=== PATIENT | female | born 1955 | race Caucasian/White ===

== ENCOUNTER 2020-06-15 14:43 | Inpatient (IN) | payer OTHER ==
--- OUTSIDE RECORDS SUMMARY | 2020-06-15 15:34 | XMS REPORT | Clinical Summary ---
:1955 Author Organization [facility] Address [address] [place] [address] Care Team Providers Name Role Phone Unavailable Primary Care Provider Unavailable Allergies No Known Allergies Medications Medication Sig Dispensed Refills Start Date End Date Status lisinopril Take 20 mg by 0 Activ e (PRINIVIL,ZESTRIL) 20 mouth daily. MG tablet meclizine (ANTIVERT) Take 1 tablet 30 tablet 0 10/20/2016 Active 12.5 mg tablet (12.5 mg total) by mouth 3 (three) times daily as needed for Dizziness. 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 Last Filed Vital Signs Not on file Plan of Treatment Not on file Results Not on fileafter 06/15/2019 Insurance Payer Benefit Plan / Group Subscriber ID Type Phone A ddress [employer] - [employer] CARE AET[employer] HMO POS QPOS xxxxxx HMO/POS Advance Directives For more information, please contact:[address] [place], [place] [phone] Code Status Date Activated Date Inactivated Comments Full Code 10/18/2016 11:35 PM 10/20/2016 6:30 PM This code status was determined by: Patient
[2020-06-15 16:46] LABS: Urine Bacteria <20 /HPF (<20); Urine Culture Reflex Order NOT NEEDED; Urine RBC <5 /HPF (NONE SEEN)
[2020-06-15 17:09] LABS: Absolute Lymphocytes (CBC) 0.8 K/uL (0.7-4.9); Basophils % 0.2 % (0-1.3); Hematocrit 39.1 % (36.0-45.0); Lymphocytes % 9.1 % (15.3-44.8); MPV 7.3 fL (7.6-11.3); RBC Red Blood Cell Count 4.22 M/uL (3.86-4.86)
[2020-06-15] MEDS ORDERED: NA CHLORIDE 0.9% 1,000 ML ONE ×2 (17:09→21:48)
[2020-06-15 17:29] LABS: Albumin 4.4 g/dL (3.4-5.0); Bilirubin Direct 0.2 mg/dL (0-0.2); Bilirubin Total 0.9 mg/dL (0.2-1.0); Potassium 3.9 mmol/L (3.5-5.1); Protein, Total 8.7 g/dL (6.4-8.2)
--- NOTE | 2020-06-15 18:33 | RAD REPORT ---
EXAM DESCRIPTION: CT - Abdomen Pelvis W Contrast - 06/15/2020 6:12 pm CLINICAL HISTORY: Abdominal pain. COMPARISON: 2011 TECHNIQUE: Computed axial tomography of the abdomen and pelvis was obtained. 100 cc Isovue-300 is ad ministered intravenously. Oral contrast was given. All CT scans are performed using dose optimization technique as appropriate and may include automated exposure control or mA/KV adjustment according to patient size. FINDINGS: 10 millimeter ground-glass opacity left lower lobe The liver, spleen, pancreas, adrenals and kidneys appear unremarkable. Appendectomy Large number of diverticula stem from the sigmoid colon. An air bubble appears extraluminal adjacent to sigmoid colon. Marked thickening of the wall of the sigmoid colon is present. Moderate stranding i s seen within the adjacent fat. Small to moderate amount free fluid is present within the cul-de-sac. Atherosclerosis. High-grade stenosis right common iliac artery IMPRESSION: Moderate to marked sigmoid diverticulitis. There probably is a microperforation. Small t o moderate amount of ascites within the cul-de-sac 10 millimeter ground-glass opacity left lower lobe. Follow up CT chest in 3 months recommended to ass ess stability/resolution
[2020-06-15] MEDS ORDERED: PIPER/TAZO/NS 3.375gm 3.375 GM/100 ML BAG ONE (19:25)
--- NOTE | 2020-06-15 19:58 | ER ---
Nurse's Notes [facility] Name: Niki Melendrez Age: 64 yrs Sex: Female : 1955 Arrival Date: 06/15/2020 Time: 14:45 Bed 4 Private MD: Diagnosis: Diverticulitis of large intestine with perforation and abscess Presentation: 06/15 15:40 Chief complaint: Patient states: lower abdominal pain X 4 days; Dr. Mast said he felt jl7 a mass or something and sent me here. Reports diarrhea, denies N/V; denies urinary symptoms. Coronavirus screen: Patient denies a cough. Patient denies shortness of breath or difficulty breathing. Patient denies measured and/or subjective temperature greater than 100.4F prior to today's visit. Patient denies travel on a cruise ship or to a country the [facility] currently lists as an affected area. Patient denies contact with known and/or suspected case of COVID-19. Proceed with normal triage. Ebola Screen: No symptoms or risks identified at this time. Initial Sepsis Screen: Does the patient meet any 2 criteria? No. Patient's initial sepsis screen is negative. Does the patient have a suspected source of infection? No. Patient's initial sepsis screen is negative. Risk Assessment: Do you want to hurt yourself or someone else? Patient reports no desire to harm self or others. Onset of symptoms was June 12, 2020. Care prior to arrival: None. 15:40 Method Of Arrival: Ambulatory [facility] 15:40 Acuity: MARCUS 3 jl7 Triage Assessment: 15:43 General: Appears in no apparent distress. uncomfortable, Behavior is calm, cooperative, jl7 appropriate for age. Pain: Complains of pain in right lower quadrant and left lower quadrant Pain currently is 8 out of 10 on a pain scale. GI: Reports diarrhea, Patient currently denies nausea, vomiting. Historical: - Allergies: 15:43 No Known Allergies; jl7 - Home Meds: 15:43 atorvastatin 40 mg oral tab 1 tab once daily [Active]; jl7 - PMHx: 15:43 Hyperlipidemia; Hypertension; jl7 - PSHx: 15:43 Appendectomy; jl7 - Immunization history:: Adult Immunizations unknown. - Social history:: Smoking status: Patient denies any tobacco usage or history of. Screenin:03 Abuse screen: Denies threats or abuse. Denies injuries from another. Nutritional sv screening: No deficits noted. Tuberculosis screening: No symptoms or risk factors identified. Fall Risk None identified. Assessment: 16:20 General: Appears in no apparent distress. comfortable, Behavior is calm, cooperative, em appropriate for age, Denies fever. Pain: Complains of pain in left lower quadrant and right lower quadrant Pain currently is 8 out of 10 on a pain scale. Pain began 2-3 days ago. Neuro: Level of Consciousness is awake, alert, obeys commands, Oriented to person, place, time, situation, Appropriate for age. Cardiovascular: Capillary refill < 3 seconds Patient's skin is warm and dry. Respiratory: Airway is patent Respiratory effort is even, unlabored, Respiratory pattern is regular, symmetrical. GI: Abdomen is flat, Bowel sounds present X 4 quads. Abd is soft and non tender X 4 quads. Patient currently denies nausea, vomiting. Derm: Skin is intact, is healthy with good turgor, Skin is pink, warm \T\ dry. Musculoskeletal: Capillary refill < 3 seconds, Range of motion: intact in all extremities. 17:00 Reassessment: Patient appears in no apparent distress at this time. Patient and/or em family updated on plan of care and expected duration. Pain level reassessed. Patient is alert, oriented x 3, equal unlabored respirations, skin warm/dry/pink. 17:49 Reassessment: Patient appears in no apparent distress at this time. No changes from sv previously documented assessment. Patient and/or family updated on plan of care and expected duration. Pain level reassessed. Patient is alert, oriented x 3, equal unlabored respirations, skin warm/dry/pink. 18:05 Reassessment: Patient appears in no apparent distress at this time. wheeled to CT via em wheelchair. 19:27 General: Appears in no apparent distress. Behavior is calm, cooperative, appropriate wh for age. Pain: Denies pain. Neuro: Level of Consciousness is awake, alert, obeys commands, Oriented to person, place, time, situation, Appropriate for age. Cardiovascular: Capillary refill < 3 seconds. Respiratory: Airway is patent Respiratory effort is even, unlabored, Respiratory pattern is regular, symmetrical. GI: Abdomen is flat, non-distended, Abd is soft and non tender Reports lower abdominal pain. : No signs and/or symptoms were reported regarding the genitourinary system. EENT: No signs and/or symptoms were reported regarding the EENT system. Derm: Skin is intact, is healthy with good turgor, Skin is pink, warm \T\ dry. normal. Musculoskeletal: Circulation, motion, and sensation intact. 20:31 Reassessment: Patient appears in no apparent distress at this time. No changes from previously documented assessment. Patient and/or family updated on plan of care and expected duration. Pain level reassessed. Patient is alert, oriented x 3, equal unlabored respirations, skin warm/dry/pink. MD at bedside explaining POC. 22:00 Reassessment: Patient appears in no apparent distress at this time. No changes from previously documented assessment. Patient and/or family updated on plan of care and expected duration. Pain level reassessed. Patient is alert, oriented x 3, equal unlabored respirations, skin warm/dry/pink. MD Silva at bedside explaining POC. Vital Signs: 15:40 BP 136 / 87; Pulse 83; Resp 17; Temp 97.8; Pulse Ox 99% ; Weight 65.77 kg; Height 5 ft. jl7 3 in. (160.02 cm); Pain 8/10; 17:21 BP 123 / 62; Pulse 72; Resp 18; Pulse Ox 99% on R/A; em 18:34 BP 121 / 65; Pulse 77; Resp 16; Pulse Ox 99% ; sv 19:29 BP 137 / 105; Pulse 85; Resp 18; Pulse Ox 100% on R/A; wh 20:41 BP 157 / 83; Pulse 75; Resp 18; Pulse Ox 97% on R/A; wh 22:00 BP 168 / 96; Pulse 80; Resp 18; Pulse Ox 99% on R/A; wh 15:40 Body Mass Index 25.69 (65.77 kg, 160.02 cm) jl7 ED Course: 14:45 Patient arrived in ED. fj1 15:43 Triage completed. jl7 15:43 Arm band placed on right wrist. jl7 15:46 Arnie Reddy PA is PHCP. cp 15:46 Shelton Shin MD is Attending Physician. cp 16:02 Yasmine Carbone RN is Primary Nurse. sv 16:02 Nurse Practitioner and/or Physician Print Graphic Designer to see patient. sv 16:03 Patient has correct armband on for positive identification. Bed in low position. Call sv light in reach. 16:50 Missed attempt(s): 22 gauge in left forearm. Bleeding controlled, band aid applied, sv catheter tip intact. 16:55 Inserted saline lock: 22 gauge in left antecubital area, using aseptic technique. sv ,using aseptic technique. diffusics Blood collected. Flushed left antecubital with 5 ml normal saline. 17:[address] Scan. sv 18:12 CT Abd/Pelvis - PO and IV Contrast In Process Unspecified. EDMS 18:16 Patient moved back from CT. sv 18:33 Awaiting radiology results. sv 19:02 Report given to Chet WINCHESTER and Carrillo RN. sv 19:05 Primary Nurse role handed off by Yasmine Carbone RN 19:07 Carrillo Bowser is Primary Nurse. 19:56 Gen Espinosa is Hospitalizing Provider. 22:27 No provider procedures requiring assistance completed. Patient admitted, IV remains in place. Administered Medications: 17:02 Drug: NS 0.9% 500 ml Route: IV; Rate: bolus; Site: left antecubital; em 17:48 Follow up: Response: No adverse reaction; IV Status: Completed infusion; IV Intake: sv 500ml 20:32 Follow up: Response: No adverse reaction; IV Status: Completed infusion 17:48 Drug: NS 0.9% 500 ml Route: IV; Rate: 125 ml/hr; Site: left antecubital; sv 20:32 Follow up: Response: No adverse reaction; IV Status: Infusion continued upon admission 19:20 Drug: Zosyn 3.375 grams Route: IVPB; Infused Over: 60 mins; Site: left antecubital; 20:32 Follow up: Response: No adverse reaction; IV Status: Completed infusion 21:43 Drug: morphine 2 mg {Note: RASS 0.} Route: IVP; Site: left antecubital; 22:30 Follow up: Response: No adverse reaction; Pain is decreased; RASS: Alert and Calm (0) 21:45 Drug: Phenergan 12.5 mg Route: IVP; Site: left antecubital; 22:29 Follow up: Response: No adverse reaction; Nausea is decreased Intake: 16:23 PO: 500ml (Contrast); Total: 500ml. sv 17:48 IV: 500ml; Total: 1000ml. sv 16:23 Called and spoke with Karina in CT pt finished contrast. sv Outcome: 19:58 Decision to Hospitalize by Provider. cp 22:27 Admitted to Med/surg accompanied by tech, via wheelchair, room 225, with chart, Report called to Pauline Fischer RN 22:27 Condition: stable 22:27 Instructed on the need for admit. 22:38 Patient left the ED. Signatures: Dispatcher [employer] Yasmine Alfaro, RN RN Coleman Milian, RN RN Arnie Elliott, LUIS MIGUEL PA Gabe De La Rosa, RN RN jl7 Carrillo Bowser Shawn Dodd
--- NOTE | 2020-06-15 19:59 | EDPHYS ---
Physician Documentation [facility] Name: Niki Melendrez Age: 64 yrs Sex: Female : 1955 Arrival Date: 06/15/2020 Time: 14:45 Bed 4 Private MD: ED Physician Shelton Shin HPI: 06/15 16:10 This 64 yrs old Female presents to ER via Ambulatory with complaints of cp Abdominal Pain. 16:10 The patient presents with abdominal pain in the lower abdomen. cp 16:10 Onset: The symptoms/episode began/occurred 4 day(s) ago. cp 16:10 The symptoms do not radiate. Associated signs and symptoms: Pertinent negatives: blood cp in stools, chest pain, constipation, diarrhea, dysuria, fever, vaginal discharge, vomiting. The symptoms are described as constant. Historical: - Allergies: 15:43 No Known Allergies; jl7 - Home Meds: 15:43 atorvastatin 40 mg oral tab 1 tab once daily [Active]; jl7 - PMHx: 15:43 Hyperlipidemia; Hypertension; jl7 - PSHx: 15:43 Appendectomy; jl7 - Immunization history:: Adult Immunizations unknown. - Social history:: Smoking status: Patient denies any tobacco usage or history of. ROS: 16:15 Constitutional: Negative for body aches, chills, fever, poor PO intake. cp 16:15 Eyes: Negative for injury, pain, redness, and discharge. cp 16:15 ENT: Negative for drainage from ear(s), ear pain, sore throat, difficulty swallowing, difficulty handling secretions. 16:15 Cardiovascular: Negative for chest pain, edema, palpitations. 16:15 Respiratory: Negative for cough, shortness of breath, wheezing. 16:15 Abdomen/GI: Positive for abdominal pain, Negative for vomiting, diarrhea, constipation, black/tarry stool, rectal bleeding. 16:15 Back: Negative for radiated pain. 16:15 : Negative for urinary symptoms, vaginal bleeding, vaginal discharge. 16:15 Neuro: Negative for altered mental status, headache, weakness. 16:15 All other systems are negative. Exam: 16:20 Constitutional: The patient appears in no acute distress, alert, awake, cp non-diaphoretic, non-toxic, well developed, well nourished. 16:20 Head/Face: Normocephalic, atraumatic. cp 16:20 Eyes: Periorbital structures: appear normal, Conjunctiva: normal, no exudate, no injection, Sclera: no appreciated abnormality, Lids and lashes: appear normal, bilaterally. 16:20 ENT: External ear(s): are unremarkable, Nose: is normal, Mouth: Lips: moist, Oral mucosa: moist, Posterior pharynx: Airway: no evidence of obstruction, patent. 16:20 Chest/axilla: Inspection: normal, Palpation: is normal, no crepitus, no tenderness. 16:20 Cardiovascular: Rate: normal, Rhythm: regular, Edema: is not appreciated, JVD: is not appreciated. 16:20 Respiratory: the patient does not display signs of respiratory distress, Respirations: normal, no use of accessory muscles, no retractions, labored breathing, is not present, Breath sounds: are clear throughout, no decreased breath sounds. 16:20 Abdomen/GI: Inspection: abdomen appears normal, Bowel sounds: active, all quadrants, Palpation: soft, in all quadrants, moderate abdominal tenderness, in the suprapubic area, left upper quadrant and left lower quadrant, rebound tenderness, is not appreciated, voluntary guarding, is elicited in the suprapubic area, left upper quadrant and left lower quadrant. 16:20 Back: pain, is absent, ROM is normal. 16:20 Skin: cellulitis, is not appreciated, no rash present. 16:20 Neuro: Orientation: to person, place \T\ time. Mentation: is normal, Motor: moves all fours, strength is normal. Vital Signs: 15:40 BP 136 / 87; Pulse 83; Resp 17; Temp 97.8; Pulse Ox 99% ; Weight 65.77 kg; Height 5 ft. jl7 3 in. (160.02 cm); Pain 8/10; 17:21 BP 123 / 62; Pulse 72; Resp 18; Pulse Ox 99% on R/A; em 18:34 BP 121 / 65; Pulse 77; Resp 16; Pulse Ox 99% ; sv 19:29 BP 137 / 105; Pulse 85; Resp 18; Pulse Ox 100% on R/A; wh 20:41 BP 157 / 83; Pulse 75; Resp 18; Pulse Ox 97% on R/A; wh 22:00 BP 168 / 96; Pulse 80; Resp 18; Pulse Ox 99% on R/A; wh 15:40 Body Mass Index 25.69 (65.77 kg, 160.02 cm) jl7 MDM: 16:01 Patient medically screened. cp 17:00 Differential diagnosis: bowel obstruction, diverticulitis, non-specific abd pain, cp Pyelonephritis, Ureterolithiasis, urinary tract infection. 19:00 Data reviewed: vital signs, nurses notes, lab test result(s), radiologic studies, CT cp scan, and as a result, I will admit patient. 19:14 Physician consultation: Yousif Silva MD was called at 19:10, was contacted at 19:10, regarding consult, patient's condition, and will see patient later today, would like admission per Dr. Gen Espinosa. 19:50 Physician consultation: Gen Espinosa was called at 19:50, was contacted at 19:50, regarding admission, to the telemetry unit. patient's condition. 06/15 16:08 Order name: Basic Metabolic Panel; Complete Time: 17:35 06/15 17:35 Interpretation: Normal except: GFR 74. 06/15 16:08 Order name: CBC with Diff; Complete Time: 17:35 06/15 17:36 Interpretation: Normal except: MPV 7.3; ONEIDA% 80.5; LYM% 9.1. 06/15 16:08 Order name: Hepatic Function; Complete Time: 17:35 06/15 16:08 Order name: Lipase; Complete Time: 17:35 06/15 16:08 Order name: Urine Microscopic Only; Complete Time: 17:35 06/15 16:27 Order name: Urine Dipstick--Ancillary (enter results) bd 06/15 16:08 Order name: IV Saline Lock; Complete Time: 17:24 06/15 16:08 Order name: Labs collected and sent; Complete Time: 17:24 06/15 16:08 Order name: CT Abd/Pelvis - PO and IV Contrast; Complete Time: 18:50 06/15 16:08 Order name: Urine Dipstick-Ancillary (obtain specimen); Complete Time: 17:24 06/15 19:16 Order name: NPO; Complete Time: 19:21 cp Administered Medications: 17:02 Drug: NS 0.9% 500 ml Route: IV; Rate: bolus; Site: left antecubital; 17:48 Follow up: Response: No adverse reaction; IV Status: Completed infusion; IV Intake: sv 500ml 20:32 Follow up: Response: No adverse reaction; IV Status: Completed infusion 17:48 Drug: NS 0.9% 500 ml Route: IV; Rate: 125 ml/hr; Site: left antecubital; 20:32 Follow up: Response: No adverse reaction; IV Status: Infusion continued upon admission 19:20 Drug: Zosyn 3.375 grams Route: IVPB; Infused Over: 60 mins; Site: left antecubital; 20:32 Follow up: Response: No adverse reaction; IV Status: Completed infusion 21:43 Drug: morphine 2 mg {Note: RASS 0.} Route: IVP; Site: left antecubital; 22:30 Follow up: Response: No adverse reaction; Pain is decreased; RASS: Alert and Calm (0) 21:45 Drug: Phenergan 12.5 mg Route: IVP; Site: left antecubital; 22:29 Follow up: Response: No adverse reaction; Nausea is decreased Disposition: 06/15/20 19:58 Hospitalization ordered by Gen Espinosa for Inpatient Admission. Preliminary diagnosis is Diverticulitis of large intestine with perforation and abscess. - Bed requested for Telemetry/MedSurg (Inpatient). - Status is Inpatient Admission. - Condition is Stable. - Problem is new. - Symptoms have improved. Addendum: 06/20/2020 07:06 Co-signature as Attending Physician, Shelton Shin MD. r n Signatures: Dispatcher [employer] Yasmine Alfaro RN RN sv Webb, Martha, RN RN Coleman Walters RN RN em Nieto, Roman, MD MD rn Page, Corey, PA PA Gabe Baeza RN RN Carrillo [place] Corrections: (The following items were deleted from the chart) 06/15 20:07 19:58 Hospitalization Ordered by Gen Espinosa for Inpatient Admission. Preliminary diagnosis is Diverticulitis of large intestine with perforation and abscess. Bed requested for Telemetry/MedSurg (Inpatient). Status is Inpatient Admission. Condition is Stable. Problem is new. Symptoms have improved. cp 22:38 20:07 06/15/2020 19:58 Hospitalization Ordered by Gen Espinosa for Inpatient Admission. Preliminary diagnosis is Diverticulitis of large intestine with perforation and abscess. Bed requested for Telemetry/MedSurg (Inpatient). Status is Inpatient Admission. Condition is Stable. Problem is new. Symptoms have improved. mw
[2020-06-15 20:48] LABS: Urine Blood TRACE (NEG); Urine Glucose NEGATIVE (NEG); Urine Protein 1+ (NEG); Urine Specific Gravity 1.015 (1.005-1.030); Urine pH 5.5 (5.0-7.0)
--- NOTE | 2020-06-15 21:37 | P.HP ---
Certification for Inpatient Patient admitted to: Inpatient With expected LOS: >2 Midnights Practitioner: I am a practitioner with admitting privileges, knowledge of patient current condition, hospital course, and medical plan of care. Services: Services provided to patient in accordance with Admission requirements found in Title 42 Section 412.3 of the Code of Federal Regulations Patient History Date of Service: 06/15/20 Reason for admission: Abdominal pain History of Present Illness: 64-year-old woman with a history of hypertension was referred to the emergency department by her PMD due to abdominal pain of 2 days duration. Patient reports history of diverticulosis by colonoscopy 2 years ago. Patient denies any nausea or vomiting. She endorsed alternating constipation and diarrhea. CT abdomen and pelvis done in the ED report moderate to marked sigmoid diverticulitis with possible micro perforation. General surgeon Dr. Silva was informed by the ED physician who recommended hospitalization for management. Allergies No Known Allergies Allergy (Unverified 07/11/12 02:47) Home Medications: Aspirin [Aspir-Low] 1 tab PO DAILY 12/23/17 Atorvastatin Calcium [Lipitor] 40 mg PO BEDTIME 12/23/17 Clopidogrel Bisulfate [Plavix] 75 mg PO DAILY 12/23/17 Docusate Sodium [Colace] 50 mg PO DAILY PRN 12/23/17 - Past Medical/Surgical History -: Hypertension -: Hyperlipidemia -: Colonoscopy -: Appendectomy - Family History Family History: Reviewed- Non-Contributory (Patient was adopted) - Social History Smoking Status: Never smoker Alcohol use: Yes CD- Drugs: No Caffeine use: Yes Place of Residence: Home Review of Systems Other: Except as documented, all other systems reviewed and negative. Physical Examination - Physical Exam General: Alert, In no apparent distress, Oriented x3 HEENT: Normocephalic, PERRLA, Mucous membr. moist/pink, Sclerae nonicteric Neck: Supple, JVD not distended Respiratory: Clear to auscultation bilaterally, Normal air movement Cardiovascular: No edema, Regular rate/rhythm, Normal S1 S2, No murmurs Capillary refill: <2 Seconds Gastrointestinal: Normal bowel sounds, Soft and benign, No masses, No guarding, Tenderness (Left lower quadrant), Rebound (Mild rebound tenderness the lower abdomen.) Musculoskeletal: No swelling, No erythema Integumentary: No rashes, No erythema Neurological: Normal speech, Normal strength at 5/5 x4 extr, Cranial nerves 3-12 intact - Studies Laboratory Data (last 24 hrs) 06/15/20 16:54: WBC 9.2, Hgb 13.2, Hct 39.1, Plt Count 192 06/15/20 16:54: Sodium 137, Potassium 3.9, BUN 9, Creatinine 0.79, Glucose 97, Total Bilirubin 0.9, AST 23, ALT 33, Alkaline Phosphatase 81, Lipase 160 Assessment and Plan - Problems (Diagnosis) (1) Acute diverticulitis of intestine Current Visit: Yes Status: Acute (2) Essential hypertension Current Visit: Yes Status: Acute - Plan Admit to the medical floor. Ice chips NPO post midnight Patient received IV Zosyn in the ED. We will continue Zosyn Serial abdominal examination. Consult general surgery. Pain management with IV opioids. - Advance Directives Does patient have a Living Will: No Does patient have a Durable POA for Healthcare: No
[2020-06-15] MEDS ORDERED: PROMETHAZINE INJ 25 MG/ML AMP ONE (21:48)
[2020-06-15] MEDS ORDERED: MORPHINE 2 MG/ML SYR ONE (21:48)
[2020-06-15] MEDS ORDERED: ONDANSETRON 4 MG/2 ML VIAL IV PRN (22:20)
[2020-06-15] MEDS: NA CHLORIDE 0.9% 1,000 ML IV SCH (22:20)
[2020-06-15 23:43] VITALS: BMI 25.1
[2020-06-16] MEDS: PIPER/TAZO/NS 3.375gm 3.375 GM/100 ML BAG IVPB SCH ×4 (00:24→18:25)
[2020-06-16 05:33] LABS: Basophils % 0.7 % (0-1.3); Hematocrit 35.1 % (36.0-45.0); Lymphocytes % 21.9 % (15.3-44.8); MPV 7.4 fL (7.6-11.3); RBC Red Blood Cell Count 3.77 M/uL (3.86-4.86)
[2020-06-16 05:45] LABS: Magnesium 2.6 mg/dL (1.8-2.4); Phosphorus 3.4 mg/dL (2.5-4.9); Potassium 3.5 mmol/L (3.5-5.1)
[2020-06-16] MEDS: NA CHLORIDE 0.9% 1,000 ML IV SCH ×3 (05:46→18:25)
[2020-06-16] MEDS: ACETAMINOPHEN 500 MG TAB PO PRN ×2 (08:06→18:23)
[2020-06-16] MEDS: ENOXAPARIN 40 MG/0.4 ML SQ SCH (08:07)
--- NOTE | 2020-06-16 08:38 | P.PN ---
Subjective Date of Service: 06/16/20 Chief Complaint: Abdominal pain Patient states she feels better this morning. She states abdominal pain is much better. She has been afebrile. She has no leukocytosis. Physical Examination - Vital Signs Temperature: 97.6 F Blood Pressure: 118/57 Pulse: 60 Respirations: 18 Pulse Ox (%): 96 - Physical Exam General: Alert, In no apparent distress, Oriented x3 HEENT: Mucous membr. moist/pink, Sclerae nonicteric Respiratory: Clear to auscultation bilaterally, Normal air movement Cardiovascular: No edema, Regular rate/rhythm, Normal S1 S2 Gastrointestinal: Normal bowel sounds, Soft and benign, No rebound, No guarding, Tenderness (Mild tenderness on deep palpation in the left lower quadrant) Musculoskeletal: No swelling Integumentary: No rashes Neurological: Other (Non focal) - Studies Laboratory Data (last 24 hrs) 06/15/20 16:54: WBC 9.2, Hgb 13.2, Hct 39.1, Plt Count 192 06/15/20 16:54: Sodium 137, Potassium 3.9, BUN 9, Creatinine 0.79, Glucose 97, Total Bilirubin 0.9, AST 23, ALT 33, Alkaline Phosphatase 81, Lipase 160 Assessment And Plan - Current Problems (Diagnosis) (1) Acute diverticulitis of intestine Current Visit: Yes Status: Acute (2) Essential hypertension Current Visit: Yes Status: Acute - Plan Continue IV Zosyn Clear liquid diet Serial abdominal examination. General surgery-Dr. Silva to see patient. Pain management with IV opioids.
--- NOTE | 2020-06-16 14:08 | P.CNS ---
Date of Consult: 06/15/20 PC: I was asked to see this 64-year-old female regards to her left lower quadrant abdominal pain HPC: Patient has had a 48 hr history of left lower quadrant abdominal pain. Describes it as a hard cramping pain deep in her pelvis. Seems localized pretty much to the left side at this time. Also associated with some nausea. Had seen her ekg monitor tech earlier in the day who referred to the ER. PMH: Negative PSHx: Tubal ligation, appendectomy SOC: No known allergies SYS REVIEW: No cough, wheeze, shortness of breath. No chest pain or palpitations. No urinary complaints. O/E awake alert vital signs are stable HEENT: Within normal limits Chest: Chest movement equal bilaterally ABD: Tender with mild guarding in the left lower quadrant LOCO: Intact DATA: CT scan shows small left lower quadrant micro perforation contained, no leak IMPRESSION: Perforation of acute diverticulitis of the sigmoid colon PLAN: The patient has been admitted for IV antibiotics, and pain medicine. Will keep her on clear liquids and advance her diet slowly over the next 48 hr. I anticipate that she will be able to be discharged on oral antibiotics and will follow up in my office. This plan has been discussed with her and she understands and wants to proceed.
--- NOTE | 2020-06-16 14:10 | P.PN ---
Date of Service: 06/16/20 S: Patient feels somewhat better today. Has been up ambulating in her room. Tolerating a diet with just some mild nausea. O: Abdomen is softer today, less guarding in the left lower quadrant A: Responding well to IV antibiotics P: Will continue antibiotics for today, patient may possibly be fit for discharge in the a.m.. She will follow up with me next week in my office.
[2020-06-16] MEDS ORDERED: ZOLPIDEM TARTRATE 10 MG TABLET PO PRN (20:40)
[2020-06-16] MEDS ORDERED: ATORVASTATIN 40 MG TAB PO SCH (21:00)
[2020-06-17] MEDS: PIPER/TAZO/NS 3.375gm 3.375 GM/100 ML BAG IVPB SCH ×2 (00:59→09:21)
[2020-06-17] MEDS: NA CHLORIDE 0.9% 1,000 ML IV SCH (06:35)
[2020-06-17] MEDS: ENOXAPARIN 40 MG/0.4 ML SQ SCH (08:08)
[2020-06-17] MEDS ORDERED: ASPIRIN EC 81 MG TAB PO SCH (09:00)
--- NOTE | 2020-06-17 09:31 | P.DS ---
Admission Date: 06/15/20 Discharge Date: 06/17/20 Disposition: ROUTINE DISCHARGE Discharge Condition: FAIR Reason for Admission: Abdominal pain - Problems (1) Acute diverticulitis of intestine Current Visit: Yes Status: Acute (2) Essential hypertension Current Visit: Yes Status: Acute Brief History of Present Illness: 64-year-old woman with a history of hypertension was referred to the emergency department by her PMD due to abdominal pain of 2 days duration. Patient reports history of diverticulosis by colonoscopy 2 years ago. Patient denies any nausea or vomiting. She endorsed alternating constipation and diarrhea. CT abdomen and pelvis done in the ED report moderate to marked sigmoid diverticulitis with possible micro perforation. General surgeon Dr. Silva was informed by the ED physician who recommended hospitalization for management. Hospital Course: Patient admitted to the medical floor and treated with supportive measures and IV zosyn. She was seen by general surgeon Dr. Silva who recommended medical management. Serial abdominal examination revealed improvement in abdominal. Patient tolerated liquid diet. She also had a bowel movement. She is deemed clinically stable for discharge. Patient is discharged her 7 day course of oral ciprofloxacin and Flagyl. He will follow with Dr. Silva within 1 week. Vital Signs/Physical Exam: Temp Pulse Resp BP Pulse Ox 97.4 F 69 18 127/60 96 06/17/20 00:00 06/17/20 00:00 06/17/20 00:00 06/17/20 00:00 06/17/20 00:00 General: Alert, In no apparent distress Neck: Supple Respiratory: Clear to auscultation bilaterally, Normal air movement Cardiovascular: Regular rate/rhythm, Normal S1 S2 Gastrointestinal: Normal bowel sounds, Soft and benign, Tenderness (Mild tenderness in the left lower quadrant) Musculoskeletal: No swelling, No erythema Integumentary: No rashes Neurological: Normal strength at 5/5 x4 extr Laboratory Data at Discharge: WBC 4.6 K/uL (4.3-10.9) D 06/16/20 05:00 Hgb 12.0 g/dL (12.0-15.0) 06/16/20 05:00 Hct 35.1 % (36.0-45.0) L 06/16/20 05:00 Plt Count 162 K/uL (152-406) 06/16/20 05:00 Sodium 143 mmol/L (136-145) 06/16/20 05:00 Potassium 3.5 mmol/L (3.5-5.1) 06/16/20 05:00 BUN 7 mg/dL (7-18) 06/16/20 05:00 Creatinine 0.71 mg/dL (0.55-1.3) 06/16/20 05:00 Glucose 82 mg/dL (74-106) 06/16/20 05:00 Phosphorus 3.4 mg/dL (2.5-4.9) 06/16/20 05:00 Magnesium 2.6 mg/dL (1.8-2.4) H 06/16/20 05:00 Total Bilirubin 0.9 mg/dL (0.2-1.0) 06/15/20 16:54 AST 23 U/L (15-37) 06/15/20 16:54 ALT 33 U/L (12-78) 06/15/20 16:54 Alkaline Phosphatase 81 U/L (45-117) 06/15/20 16:54 Lipase 160 U/L (73-393) 06/15/20 16:54 Home Medications: Aspirin [Aspir-Low] 1 tab PO DAILY 12/23/17 Atorvastatin Calcium [Lipitor] 40 mg PO BEDTIME 12/23/17 Vit D3 1 cap PO DAILY 06/15/20 Zolpidem Tartrate 10 mg PO BEDTIME PRN 06/15/20 Ciprofloxacin HCl [Cipro 500 MG Tablet] 500 mg PO BID #14 tab 06/17/20 Tramadol HCl [Ultram] 50 mg PO Q6H PRN #20 tablet 06/17/20 metroNIDAZOLE [Flagyl] 500 mg PO Q8H #21 tablet 06/17/20 New Medications: Ciprofloxacin HCl [Cipro 500 MG Tablet] 500 mg PO BID #14 tab metroNIDAZOLE [Flagyl] 500 mg PO Q8H #21 tablet Tramadol HCl [Ultram] 50 mg PO Q6H PRN #20 tablet PRN Reason: Pain Diet: Soft diet Activity: Ad vannesa Followup: Yousif Silva MD [Primary Care Provider] - 1 Week Time spent managing pt's care (in minutes): 37
[2020-06-17 10:09] VITALS: O2SAT 97
[2020-06-17 10:11] VITALS: BP 131/60; TEMP 96.8
== END 2020-06-17 10:30 | disposition home or self-care (01) | DRG 392 ==
LOC: ER 14:43 → ERHOLD 21:52 → 2ND 22:18
PROVIDERS: ADMIT Internal Medicine; ATTEND Internal Medicine
DX: K57.20 Diverticulitis of large intestine with perforation and abscess without bleeding (principal); E78.5 Hyperlipidemia, unspecified; I10 Essential (primary) hypertension; Z79.82 Long term (current) use of aspirin; Z79.02 Long term (current) use of antithrombotics/antiplatelets; Z79.899 Other long term (current) drug therapy; Z90.49 Acquired absence of other specified parts of digestive tract; Z11.59 Encounter for screening for other viral diseases; Z98.51 Tubal ligation status
CPT/HCPCS: 36415; 74177; 80048; 80076; 81003; 81015; 83690; 83735; 84100; 85025; 96361; 96365; 96375; 99285; J1650; J2270; J2543; J2550; J7030; Q9967; U0002

== ENCOUNTER 2022-05-29 09:34 | Emergency (ER) | payer OTHER ==
[2022-05-29] MEDS ORDERED: MECLIZINE HCL 12.5 MG TAB ONE (10:17)
[2022-05-29 10:18] LABS: Absolute Lymphocytes (CBC) 0.9 K/uL (0.7-4.9); Hematocrit 43.6 % (36.0-45.0); Lymphocytes % 17.2 % (15.3-44.8); MPV 6.6 fL (7.6-11.3); RBC Red Blood Cell Count 4.74 M/uL (3.86-4.86)
[2022-05-29 10:26] LABS: Protime INR 0.88
[2022-05-29 10:31] LABS: Potassium 4.2 mmol/L (3.5-5.1)
--- NOTE | 2022-05-29 10:59 | RAD REPORT ---
EXAM DESCRIPTION: CT - Ct Stroke Brain Wo Cont - 05/29/2022 10:20 am CLINICAL HISTORY: Dizzy COMPARISON: Head Brain Wo Cont dated 10/18/2016 TECHNIQUE: Axial 5 millimeter thick images of the head were obtained without IV contrast. All CT scans are performed using dose optimization technique as appropriate and may include automated exposure control or mA/KV adjustment according to patient size. FINDINGS: No intracranial hemorrhage, mass, or cerebral edema. No acute cortical infarction. No tamir ical edema or sulcal effacement. No significant atrophy or chronic ischemic changes seen. No extra-ax ial fluid collections. Gan matter-white matter differentiation is preserved.Ventricles are normal. Intracranial findings are similar to the 2016 study. Visualized portions of the mastoid air cells, paranasal sinuses, and orbits are unremarkable. Findings telephoned to the referring physician 10:52 a.m. IMPRESSION: No CT evidence of acute intracranial process. No significant change from the 2016 study. Continued concerns for acute CVA can be addressed with MR imaging.
--- NOTE | 2022-05-29 11:20 | RAD REPORT ---
EXAM DESCRIPTION: RAD - Chest Single View - 05/29/2022 11:00 am CLINICAL HISTORY: dizzy, hypertension COMPARISON: Portable September 2016 TECHNIQUE: AP portable chest image was obtained 05/29/2022 11:00 am . FINDINGS: No acute lung parenchymal process. Interstitial pattern not clearly different from compari son when adjusting for technique differences. No right hilar abnormality seen. There is an ill-define d 10 millimeter perihilar nodular density on the left. This is almost certainly a summation artifact of normal structures. A follow-up two-view chest film may be of the to clear this region. Otherwise, patient can be re-evaluated with chest film and 3-4 months. No failure or volume overload findings. Heart and vasculature are normal. No measurable pleural effus ion and no pneumothorax. No acute bony abnormality seen. No acute aortic findings suspected. IMPRESSION: No infiltrate, failure, volume overload or acute cardiopulmonary finding. Vague nodular density at the left hilum is almost certainly a summation artifact. Follow-up Two view chest imaging may clear this finding. Otherwise, repeat chest imaging in 3-4 months could be obtained .
[2022-05-29] MEDS ORDERED: dexAMETHasone 10 MG/ML VIAL ONE (11:43)
[2022-05-29] MEDS ORDERED: DIPHENHYDRAMINE 50 MG/ML VIAL ONE (11:43)
[2022-05-29] MEDS ORDERED: METOCLOPRAMIDE 10 MG/2mL INJ ONE (11:43)
--- NOTE | 2022-05-29 12:49 | ER ---
Nurse's Notes [facility] Name: Niki Melendrez Age: 66 yrs Sex: Female : 1955 Arrival Date: 05/29/2022 Time: 09:37 Bed 15 Private MD: Diagnosis: Dizziness;Lightheaded;headache Presentation: 05/29 09:50 Chief complaint: Patient states: Dizzy/lightheaded/headache X 3 days. Coronavirus ld1 screen: At this time, the client does not indicate any symptoms associated with coronavirus-19. Ebola Screen: No symptoms or risks identified at this time. Initial Sepsis Screen: Does the patient meet any 2 criteria? No. Patient's initial sepsis screen is negative. Does the patient have a suspected source of infection? No. Patient's initial sepsis screen is negative. Risk Assessment: Do you want to hurt yourself or someone else? Patient reports no desire to harm self or others. Onset of symptoms was May 29, 2022. 09:50 Method Of Arrival: Ambulatory ld1 09:50 Acuity: MARCUS 3 ld1 Triage Assessment: 09:51 General: Appears in no apparent distress. comfortable, Behavior is calm, appropriate ld1 for age. Pain: Complains of pain in face Pain does not radiate. Pain currently is 4 out of 10 on a pain scale. EENT: No signs and/or symptoms were reported regarding the EENT system. Neuro: Level of Consciousness is awake, alert, obeys commands, Oriented to person, place, time, situation. Neuro: Reports dizziness, headache frontal area. Cardiovascular: Capillary refill < 3 seconds Patient's skin is warm and dry. Respiratory: Airway is patent Respiratory effort is even, unlabored. GI: Abdomen is flat, non-distended. : No signs and/or symptoms were reported regarding the genitourinary system. Derm: No signs and/or symptoms reported regarding the dermatologic system. Musculoskeletal: No signs and/or symptoms reported regarding the musculoskeletal system. Historical: - Allergies: :51 No Known Allergies; ld1 - Home Meds: :51 atorvastatin 40 mg Oral tab 1 tab once daily [Active]; ld1 - PMHx: :51 Hyperlipidemia; Hypertension; ld1 - PSHx: :51 colon surgery; Appendectomy; Tubal ligation; ld1 - Immunization history:: Adult Immunizations up to date, Client reports receiving the 2nd dose of the Covid vaccine. - Social history:: Smoking status: Patient denies any tobacco usage or history of. Patient uses alcohol, occasionally. Screenin:14 Abuse screen: Denies threats or abuse. Nutritional screening: No deficits noted. jh6 Tuberculosis screening: No symptoms or risk factors identified. Fall Risk None identified. Assessment: 10:14 General: Appears in no apparent distress. Behavior is calm, cooperative. Neuro: Reports jh6 dizziness, since 3 days prior headache in entire. 11:35 Reassessment: Patient and/or family updated on plan of care and expected duration. Pain jh6 level reassessed. 11:35 Pain: Pain currently is 9 out of 10 on a pain scale. Neuro: Reports headache in entire. jh6 13:00 Reassessment: Patient is alert, oriented x 3, equal unlabored respirations, skin jh6 warm/dry/pink. 13:00 Pain: Complains of pain in top of head and left frontal area Pain currently is 3 out of jh6 10 on a pain scale. Quality of pain is described as dull. 15:00 General: pt stated that after going to MRI her pain became worse to the top of her jh6 head. . 15:13 Reassessment: Patient and/or family updated on plan of care and expected duration. Pain jh6 level reassessed. Patient is alert, oriented x 3, equal unlabored respirations, skin warm/dry/pink. Pain: Complains of pain in left frontal area Pain currently is 6 out of 10 on a pain scale. Quality of pain is described as dull. Vital Signs: 09:50 BP 159 / 85; Pulse 83; Resp 18; Temp 97.6(TE); Pulse Ox 99% on R/A; Weight 63.5 kg; ld1 Height 5 ft. 4 in. (162.56 cm); Pain 4/10; 10:46 BP 162 / 68; Pulse 80; Resp 17; Pulse Ox 98% ; jh6 11:45 BP 154 / 86; Pulse 96; Resp 17; Pulse Ox 100% ; Pain 9/10; jh6 13:00 BP 135 / 74; Pulse 76; Resp 16; Pulse Ox 100% ; Pain 4/10; jh6 14:50 BP 138 / 75; Pulse 71; Resp 16; Pulse Ox 100% ; Pain 5/10; jh6 15:30 BP 126 / 80; Pulse 76; Resp 16; Pulse Ox 100% ; jh6 09:50 Body Mass Index 24.03 (63.50 kg, 162.56 cm) ld1 ED Course: 09:37 Patient arrived in ED. mr 09:51 Raymond Gotti DO is Attending Physician. ms3 09:51 Triage completed. ld1 09:51 Arm band placed on right wrist. ld1 09:53 Angela Mcleod, RN is Primary Nurse. ld1 10:14 No provider procedures requiring assistance completed. EKG done, by ED staff, reviewed jh6 by Raymond Gotti DO. Inserted saline lock: 20 gauge in right antecubital area, using aseptic technique. Blood collected. 10:15 Placed in gown. Bed in low position. Call light in reach. Side rails up X 1. jh6 10:21 CT Stroke Brain w/o Contrast In Process Unspecified. EDMS 10:46 X-ray(s) taken. jh6 11:01 Stroke CXR 1 View In Process Unspecified. EDMS 12:47 Stefano Liu MD is Hospitalizing Provider. ms3 13:52 MRA Head Wo Cont In Process Unspecified. EDMS 13:52 Brain Wo Cont In Process Unspecified. EDMS 14:06 XRAY Chest Pa And Lat (2 Views) In Process Unspecified. EDMS 14:32 Randolph Melgar MD is Referral Physician. ms3 15:30 IV discontinued, intact, bleeding controlled, No redness/swelling at site. Pressure jh6 dressing applied. Administered Medications: 10:13 Drug: Meclizine 50 mg Route: PO; jh6 11:33 Follow up: Response: Other jh6 11:48 Drug: Reglan (metoCLOPramide) 10 mg Route: IVP; Site: right antecubital; jh6 11:48 Drug: Benadryl (diphenhydrAMINE) 25 mg Route: IVP; Site: right antecubital; jh6 11:48 Drug: Decadron - Dexamethasone 10 mg Route: IVP; Site: right antecubital; jh6 15:12 Drug: Fioricet - Esgic 325 mg-40 mg-50 mg 1 tab-caps Route: PO; jh6 15:31 Follow up: Response: No adverse reaction 6 Outcome: 12:48 Decision to Hospitalize by Provider. ms3 14:33 Discharge ordered by . ms3 15:30 Discharged to home ambulatory. jh6 15:30 Condition: improved 15:30 Discharge instructions given to patient, family, Instructed on discharge instructions, follow up and referral plans. Demonstrated understanding of instructions, follow-up care, Prescriptions given X 1. 15:31 Patient left the ED. 6 Signatures: Dispatcher [employer] EDUT Sonia Lomeli Marcus, DO ms3 Angela Mcleod, RN RN ld1 Jossie Pritchard RN RN jh6
--- NOTE | 2022-05-29 12:49 | EDPHYS ---
Physician Documentation [facility] Name: Niki Melendrez Age: 66 yrs Sex: Female : 1955 Arrival Date: 05/29/2022 Time: 09:37 Bed 15 Private MD: ED Physician Raymond Gotti HPI: 05/29 10:02 This 66 yrs old Female presents to ER via Ambulatory with complaints of Dizziness. ms3 10:02 The patient presents with feeling off balance. Onset: The symptoms/episode ms3 began/occurred 3 day(s) ago. Context: Constant for 3 days, has been intermittent prior to. Began spontaneously. Modifying factors: The symptoms are alleviated by nothing, the symptoms are aggravated by nothing. Associated signs and symptoms: Pertinent negatives: abdominal pain, nausea, vomiting. Severity of symptoms: At their worst the symptoms were moderate in the emergency department the symptoms are unchanged. Patient's baseline: Neuro: alert and fully oriented, Motor: no deficits, Ambulation: walks without assistance, Speech: normal, The patient has a previous history of vertigo. Historical: - Allergies: 09:51 No Known Allergies; ld1 - Home Meds: 09:51 atorvastatin 40 mg Oral tab 1 tab once daily [Active]; ld1 - PMHx: 09:51 Hyperlipidemia; Hypertension; ld1 - PSHx: 09:51 colon surgery; Appendectomy; Tubal ligation; ld1 - Immunization history:: Adult Immunizations up to date, Client reports receiving the 2nd dose of the Covid vaccine. - Social history:: Smoking status: Patient denies any tobacco usage or history of. Patient uses alcohol, occasionally. ROS: 10:02 Constitutional: Negative for fever, and chills. Eyes: Negative for injury, pain, ms3 redness, and discharge, Neck: Negative for injury, pain, and swelling, Cardiovascular: Negative for chest pain, and palpitations. Respiratory: Negative for shortness of breath, cough, wheezing, and pleuritic chest pain, Abdomen/GI: Negative for abdominal pain, nausea, vomiting, diarrhea, and constipation, : Negative for injury, bleeding, discharge, and swelling, MS/Extremity: Negative for injury and deformity, Skin: Negative for injury, rash, and discoloration. 10:02 Neuro: Positive for dizziness. 10:02 All other systems are negative. Exam: 10:02 Constitutional: This is a well developed, well nourished patient who is awake, alert, ms3 and in no acute distress. Head/Face: Normocephalic, atraumatic. Neck: Trachea midline, no cervical lymphadenopathy. Supple, full range of motion without nuchal rigidity, or vertebral point tenderness. No Meningismus. Chest/axilla: Normal chest wall appearance and motion. Nontender with no deformity. Cardiovascular: Regular rate and rhythm with a normal S1 and S2. No gallops, murmurs, or rubs. Normal PMI, no JVD. No pulse deficits. Respiratory: Lungs have equal breath sounds bilaterally, clear to auscultation and percussion. No rales, rhonchi or wheezes noted. No increased work of breathing, no retractions or nasal flaring. Abdomen/GI: Soft, non-tender, with normal bowel sounds. No distension or tympany. No guarding or rebound. No evidence of tenderness throughout. Back: No spinal tenderness. No costovertebral tenderness. Full range of motion. Skin: Warm, dry with normal turgor. Normal color with no rashes, no lesions, and no evidence of cellulitis. MS/ Extremity: Pulses equal, no cyanosis. Neurovascular intact. Full, normal range of motion. Psych: Awake, alert, with orientation to person, place and time. Behavior, mood, and affect are within normal limits. 10:02 Neuro: Orientation: is normal, to person, place, time \\T\\ situation. Mentation: is normal, Memory: is normal, Cranial nerves: grossly normal, Cerebellar function: normal finger to nose testing, Motor: is normal, Sensation: is normal. 10:17 ECG was reviewed by the Attending Physician. ms3 Vital Signs: 09:50 BP 159 / 85; Pulse 83; Resp 18; Temp 97.6(TE); Pulse Ox 99% on R/A; Weight 63.5 kg; ld1 Height 5 ft. 4 in. (162.56 cm); Pain 4/10; 10:46 BP 162 / 68; Pulse 80; Resp 17; Pulse Ox 98% ; jh6 11:45 BP 154 / 86; Pulse 96; Resp 17; Pulse Ox 100% ; Pain 9/10; jh6 13:00 BP 135 / 74; Pulse 76; Resp 16; Pulse Ox 100% ; Pain 4/10; jh6 14:50 BP 138 / 75; Pulse 71; Resp 16; Pulse Ox 100% ; Pain 5/10; jh6 15:30 BP 126 / 80; Pulse 76; Resp 16; Pulse Ox 100% ; jh6 09:50 Body Mass Index 24.03 (63.50 kg, 162.56 cm) ld1 MDM: 10:00 Patient medically screened. ms3 10:02 Differential diagnosis: CVA, idiopathic dizziness, near-syncope, vertigo. 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 12:45 Data reviewed: vital signs, nurses notes, lab test result(s), radiologic studies, and ms3 as a result, I will admit patient. Counseling: I had a detailed discussion with the patient and/or guardian regarding: the historical points, exam findings, and any diagnostic results supporting the discharge/admit diagnosis, lab results, radiology results, the need for further work-up and treatment in the hospital. Physician consultation: Randolph Melgar MD was called at 12:45, was contacted at 12:45, regarding consult, and will see patient in inpatient room. ED course: Discussed case with Dr Liu and he accepts patient. Dr Melgar to consult. Discussed results of CT and lab with patient.. 14:57 ED course: MRI/MRA returned without acute abnormality. Discussed radiology studies, ms3 physical exam findings with patient. Patient to follow-up with Dr Melgar in 2 to 3 days. Patient understands and agrees with plan. All questions were answered. Return precautions discussed include worsening symptoms, or any other concerns. On reevaluation patient is alert and oriented x4, in no apparent distress, nontoxic-appearing, speaking full sentences.. 14:59 ED course: Discussed MRI/MRA with Dr Melgar and he agrees with outpatient follow up.. ms3 05/29 10:02 Order name: Basic Metabolic Panel; Complete Time: 10:41 ms3 05/29 10:02 Order name: CBC with Diff; Complete Time: 10:41 ms3 05/29 10:02 Order name: Protime (+inr); Complete Time: 10:41 ms3 05/29 10:02 Order name: Ptt, Activated; Complete Time: 10:41 ms3 05/29 10:02 Order name: CT Stroke Brain w/o Contrast; Complete Time: 11:27 ms3 05/29 12:52 Order name: COVID-19 SARS RT PCR (Document "Date of Onset" if Symptomatic); Complete ms3 Time: 15:00 05/29 10:02 Order name: Stroke CXR 1 View; Complete Time: 11:27 ms3 05/29 12:49 Order name: XRAY Chest Pa And Lat (2 Views); Complete Time: 14:21 ms3 05/29 12:51 Order name: MRA Head w/o Contrast ms3 05/29 12:57 Order name: MRA Head Wo Cont; Complete Time: 14:21 EDMS 05/29 13:16 Order name: Brain Wo Cont; Complete Time: 14:21 EDMS 05/29 10:02 Order name: EKG; Complete Time: 10:03 ms3 05/29 10:02 Order name: Cardiac monitoring; Complete Time: 10:13 ms3 05/29 10:02 Order name: EKG - Nurse/Tech; Complete Time: 10:13 ms3 05/29 10:02 Order name: IV Saline Lock; Complete Time: 10:13 ms3 05/29 10:02 Order name: Labs collected and sent; Complete Time: 10:13 ms3 05/29 10:02 Order name: NPO; Complete Time: 10:13 ms3 05/29 10:02 Order name: O2 Per Protocol; Complete Time: 10:13 ms3 05/29 10:02 Order name: O2 Sat Monitoring; Complete Time: 10:13 ms3 05/29 10:02 Order name: Stroke Swallow Screen; Complete Time: 10:14 ms3 EC:17 Rate is 65 beats/min. Rhythm is regular. QRS Petal is Normal. Clinical impression: ms3 Normal ECG. Interpreted by me. Reviewed by me. Administered Medications: 10:13 Drug: Meclizine 50 mg Route: PO; 6 11:33 Follow up: Response: Other 6 11:48 Drug: Reglan (metoCLOPramide) 10 mg Route: IVP; Site: right antecubital; 6 11:48 Drug: Benadryl (diphenhydrAMINE) 25 mg Route: IVP; Site: right antecubital; jh6 11:48 Drug: Decadron - Dexamethasone 10 mg Route: IVP; Site: right antecubital; [facility] 15:12 Drug: Fioricet - Esgic 325 mg-40 mg-50 mg 1 tab-caps Route: PO; [facility] 15:31 Follow up: Response: No adverse reaction [facility] Disposition Summary: 05/29/22 14:33 Discharge Ordered Location: Home(05/29/22 14:33) ms3 Problem: new(05/29/22 14:33) ms3 Symptoms: are unchanged(05/29/22 14:33) ms3 Condition: Stable(05/29/22 14:33) ms3 Diagnosis - Dizziness ms3 - Lightheaded ms3 - headache ms3 Followup: ms3 - With: Randolph Melgar MD - When: 1 - 2 days - Reason: Re-evaluation by your physician Discharge Instructions: - Discharge Summary Sheet ms3 - Dizziness ms3 - General Headache Without Cause ms3 Forms: - Medication Reconciliation Form ms3 - Thank You Letter ms3 - Antibiotic Education ms3 - Prescription Opioid Use ms3 Prescriptions: - Fioricet 50-300-40 mg Oral capsule - take 1 capsule by ORAL route every 4 hours as needed; 20 capsule; Refills: 0, cp Product Selection Permitted Signatures: Dispatcher [employer] Raymond Ventura DO DO ms3 Angela Mcleod, RN RN ld1 Jossie Pritchard RN RN jh6 Corrections: (The following items were deleted from the chart) 14:32 12:48 Observation ms3 ms3 14:32 12:48 Stefano Liu ms3 ms3 14:32 12:48 Telemetry/MedSurg (observation) ms3 ms3 14:32 12:48 Stable ms3 ms3 14:32 12:48 new ms3 ms3 14:32 12:48 are resolved ms3 ms3 14:32 12:48 Standard ms3 ms3 14:32 12:48 ms3 ms3 14:32 12:48 Dizziness ms3 ms3
--- NOTE | 2022-05-29 14:03 | RAD REPORT ---
EXAM DESCRIPTION: MRI - MRA Head Wo Cont - 05/29/2022 1:50 pm CLINICAL HISTORY: Dizziness, non-specific CVA COMPARISON: Ct Stroke Brain Wo Cont dated 05/29/2022; Chest Single View dated 05/29/2022 FINDINGS: 3D noncontrast [id number] MR angiography of the [place] was performed. No aneurysm, flow-limiting stenosis or vascular malformation is seen. No large vessel occlusion seen. Right vertebral artery is dominant. The visualized dural venous sinuses appear patent. IMPRESSION: No significant flow abnormality of the [place] is identified.
--- NOTE | 2022-05-29 14:06 | RAD REPORT ---
EXAM DESCRIPTION: MRI - Brain Wo Cont - 05/29/2022 1:53 pm CLINICAL HISTORY: possible stroke Headache, drowsiness, CVA symptomology COMPARISON: MRA Head Wo Cont dated 05/29/2022 TECHNIQUE: Multi-sequence, multiplanar MR imaging of the brain was performed without contrast. FINDINGS: No intracranial hemorrhage, hydrocephalus or extra-axial fluid collections.Mild generalize d brain atrophy. No edema or shift of midline structures. No findings to suspect brain mass. DWI is n egative for acute CVA. Midline structures are normally formed. Mastoid air cells and paranasal sinuses are clear. IMPRESSION: Negative for acute CVA or other acute intracranial abnormality.
--- NOTE | 2022-05-29 14:18 | RAD REPORT ---
EXAM DESCRIPTION: RAD - Chest Pa And Lat (2 Views) - 05/29/2022 2:04 pm CLINICAL HISTORY: nodular denisty on 1 view cxr Chest pain. COMPARISON: Chest Single View dated 05/29/2022; Chest Single View dated 10/18/2016; CHEST SINGLE VIEW dated 07/11/2012 FINDINGS: The lungs are clear. The heart is normal in size. No displaced fractures. IMPRESSION: No acute or concerning finding suspected.
[2022-05-29] MEDS ORDERED: ACETAMIN/CAFFEINE/BUTALB TAB PO ONE (15:11)
[2022-05-29 15:43] VITALS: TEMP 97.6
[2022-05-29 15:46] VITALS: O2SAT 100
[2022-05-29 15:52] VITALS: BP 126/80
--- NOTE | 2022-05-30 11:10 | EKG ---
Test Date: 2022-05-29 Test Time: 10:10:08 [employer] Cloth: MARIO MEASUREMENT RESULTS: Intervals: Rate: 65 ME: 196 QRSD: 68 QT: 390 QTc: 405 [place]: P: 70 ME: 196 QRS: 47 T: 76 INTERPRETIVE STATEMENTS: Normal sinus rhythm Normal ECG Compared to ECG 10/18/2016 15:49:47 No significant changes Electronically Signed On 05-30-22 11:06:52 CDT by Travis Ray
== END 2022-05-29 15:31 | disposition home or self-care (01) ==
LOC: ER 09:34
DX: R42 Dizziness and giddiness (principal); R51.9 Headache, unspecified; Z20.822 Contact with and (suspected) exposure to COVID-19; I10 Essential (primary) hypertension; E78.5 Hyperlipidemia, unspecified
CPT/HCPCS: 93005; 85025; 80048; 36415; 85610; 85730; 70450; 71045; 71046; 70551; 70544; U0003; J2765; J1200; J8597; J1100

== ENCOUNTER 2022-07-07 23:11 | Inpatient (IN) | payer OTHER ==
--- OUTSIDE RECORDS SUMMARY | 2022-07-07 23:14 | XMS REPORT | Continuity of Care Document ---
:1955 Author Organization [facility] t Address [address] [place] [address] Care Team Providers Name Role Phone Beverley Radha Attending Clinician Unavailable Lemuel Max Attending Clinician Unavailable LEMUEL MAX Attending Clinician Unavailable Lemuel Max Admitting Clinician Unavailable KNOW, DOES_NOT Admitting Clinician Unavailable Payers Payer Name Policy Type Policy Number Effective Date Expiration Date S ource Problems This patient has no known problems. Allergies, Adverse Reactions, Alerts Allergy Allergy Status Severity Reaction(s) Onset Inactive Treating Comm ents Source Name Type Date Date Clinician No Known DA Active U 2020- [facility]11 [facility] 00:00: [address] No Known DA Active U 2019-11 [facility]ie 12-11 [facility] 00:00: [address] No Known DA Active U 2019-11 [facility] [place] No Known DA Active U 2019-1 [facility] [place] Medications This patient has no known medications. Procedures Procedure Date / Time Performed Performing Clinician [facility] e [id number] 2020-10-17 00:00:00 [facility] [id number] 2020-10-17 00:00:00 [facility] [id number] 2020-10-17 00:00:00 [facility] [id number] 2020-09-05 00:00:00 [facility] [id number] 2020-09-05 00:00:00 [facility] [id number] 2020-09-05 00:00:00 [facility] [id number] 2020-09-05 00:00:00 [facility] [id number] 2020-09-05 00:00:00 [facility] [id number] 2020-09-05 00:00:00 [facility] [id number] 2020-09-05 00:00:00 [facility] Encounters Start End Encounter Admission Attending Care Care Encounter Source Date/Time Date/Time Type Type Clinicians Facility Department ID 2022-02-13 Outpatient Lowery, STLMLC [facility] [id number] Common 08:56:03 Radha [facility] 2020-10-17 Inpatient EL LeFgarcía, [facility] MEDI.01 [id number] [facility] 12:30:00 Lemuel [id number] [facility] 2020-10-14 Inpatient LeFave, [facility] [id number] [facility] 12:30:00 Lemuel [facility] 2020-10-11 Inpatient LeFave, [facility] [id number] [facility] 11:00:00 Lemuel [id number] [facility] 2020-09-02 Inpatient EL LeFave, [facility] [id number] [facility] 13:30:00 Lemuel [facility] 2022-07-02 2022-07-02 ambulatory STLMLC STL[facility]C [id number] Common 00:00:00 00:00:00 [facility] 2022-06-25 2022-06-25 ambulatory STLMLC STLMLC [id number] Common 00:00:00 00:00:00 [facility] 2022-06-22 2022-06-22 ambulatory STLMLC STLMLC [id number] Common 00:00:00 00:00:00 [facility] 2022-06-15 2022-06-15 ambulatory STLMLC STLMLC [id number] Common 00:00:00 00:00:00 [facility] 2022-05-31 2022-05-31 ambulatory STLMLC STLMLC [id number] Common 00:00:00 00:00:00 [facility] 2022-05-10 2022-05-10 ambulatory STLMLC STLMLC [id number] Common 00:00:00 00:00:00 [facility] 2022-03-21 2022-03-21 ambulatory STLMLC STLMLC [id number] Common 00:00:00 00:00:00 [facility] 2022-02-13 2022-02-13 ambulatory STLMLC STLMLC [id number] Common 00:00:00 00:00:00 [facility] 2022-02-13 2022-02-13 ambulatory STLMLC STLMLC [id number] Common 00:00:00 00:00:00 [facility] 2020-11-29 2020-11-29 Outpatient LEFAVE, [facility] [id number] [address] [place] [address] 00:00:00 00:00:00 LEMUEL Bazzi Method i 2020-10-05 2020-10-05 Outpatient LeFave, [facility] RADI [id number] -20 [facility] 07:00:00 07:00:00 Lemuel [id number] [facility] 2020-09-08 2020-09-08 Outpatient LeFave, [facility] OUTD [id number] -20 [facility] 10:30:00 10:30:00 Lemuel [id number] [facility] 2020-09-05 2020-09-05 Outpatient Codi, [facility] OUTD [id number] -20 [facility] 07:30:00 07:30:00 Lemuel [id number] [facility] 2020-08-10 2020-08-10 Outpatient CODI, [facility] [id number] [address] [place] 00:00:00 00:00:00 LEMUEL [address] Results Test Description Test Time Test Comments Results Result Comments Source CHEMISTRY 7 PROFILE 2020-10-19 06:14:00 Test Item Value Reference Range Interpretation Comme nts SODIUM (test code = NA) 141 mEq/L 135-145 POTASSIUM (test code = K) 3.7 mEq/L 3.5-5.0 N CHLORIDE (test code = CL) 107 mEq/L 100-115 N CARBON DIOXIDE (test code = CO2) 29 mEq/L 22-31 N ANION GAP (test code = GAP) 9.20 10-20 L GLUCOSE (test code = GLU) 82 mg/dL 65-110 N BLOOD UREA NITROGEN (test code = BUN) 8 mg/dL 7-18 N GLOMERULAR FILTRATION RATE (test code = GFR) 101 ml/min >60 N CREATININE (test code = CREAT) 0.6 mg/dL 0.5-1.0 N CALCIUM (test code = CA) 8.1 mg/dL 8.4-10.2 L CBC W/AUTO [id number] 05:59:00 Test Item Value Reference Range Interpretation Comments WHITE BLOOD CELL (test code = WBC) 7.5 K/mm3 6.6-12.1 N RED BLOOD CELL (test code = RBC) 3.24 M/mm3 3.45-5.01 L HEMOGLOBIN (test code = HGB) 9.9 g/dL 10.7-13.9 L HEMATOCRIT (test code = HCT) 30.5 % 32.1-42.1 L MEAN CELL VOLUME (test code = MCV) 94 fL 84.1-94.8 N MEAN CELL HGB (test code = MCH) 30.6 pg 27-35 N MEAN CELL HGB CONCETRATION (test 32.5 gm/dL 32.2-34.1 N code = MCHC) RED CELL DISTRIBUTION WIDTH (test 14.0 % 12.4-16.5 N code = RDW) PLATELET COUNT (test code = PLT) 158 K/mm3 133-385 N MEAN PLATELET VOLUME (test code = 9.9 fl 9.1-12.7 N MPV) NEUTROPHIL % (test code = NT%) 74.0 % 56.5-79.4 N LYMPHOCYTE % (test code = LY%) 16.9 % 14.3-34.3 N MONOCYTE % (test code = MO%) 7.3 % 5.1-10.4 N EOSINOPHIL % (test code = EO%) 1.2 % 0.1-3.0 N BASOPHIL % (test code = BA%) 0.3 % 0.1-1.0 N NEUTROPHIL # (test code = NT#) 5.6 K/mm3 LYMPHOCYTE # (test code = LY#) 1.3 K/mm3 MONOCYTE # (test code = MO#) 0.6 K/mm3 EOSINOPHIL # (test code = EO#) 0.09 K/mm3 BASOPHIL # (test code = BA#) 0.0 K/mm3 RBC MORPHOLOGY REQUIRED (test code NORMAL NORMAL = RBCM) PLATELET MORPHOLOGY REQUIRED (test NORMAL NORMAL code = PLTMR) SOFT TISSUE MASS BX NOT [id number] 19:27:00 Test Item Value Reference Range Interpretation Comments SOFT TISSUE MASS BX NOT LIPOMA (test code = SOFTTISMAS) RUN DATE: 10/24/20 [facility] PAGE 1 RUN TIME: 1216 Specimen Inquiry RUN USER: INTERFACE PATIENT: NIKI MELENDREZ LOC: JUAN MIGUEL #: [id number] AGE/SX: 64/F ROOM: [facility] RE10/17/20REG DR: Lemuel Max MD : 57 BED: A DIS: 10/19/20 STATUS: DIS IN TLOC: SPEC #: [id number] RECD: 10/17/20-1227 STATUS: AMELIA RE #: [id number] CARLEY: 10/17/20- SUBM DR: Lemuel Max MD ENTERED: 10/17/20-1230 SP TYPE: SOFTMEXLBX OTHR DR: Chuck John MD, Jose G MDORDERED: LEVEL V SURGICA CODES: [id number] - ILEUM, NOS [id number] - PERITONEUM, NOS COPIES TO: Chuck John MD [address] [place] [address] [place] [address] [facility] [address] [place] [address] Lemuel Max MD [address] [place] [address] PROCEDURES: LEVEL V SURGICA (Incomplete) TISSUES: ILEUM, NOS - ILEOSTOMY/ HERNIA SAC PERITONEUM, NOS - HERNIA SAC CLINICAL HISTORY 64 year old, diverticulitis/ileostomy closure (kr) FINAL DIAGNOSIS Specimen #1 ileostomy, resection: - site with chronic inflammation and suture material - fibrous adhesions Specimen #2 hernia sac, resection: - fibroadipose tissue with chronic inflammation and fibrosis CPT code(s): 69427, 79012 cds/wpd CONTINUED ON NEXT PAGE RUN DATE: 10/24/20 [facility] PAGE 2 RUN TIME: 1216 Specimen Inquiry RUN USER: INTERFACE SPEC #: [id number] PATIENT: NIKI MELENDREZ #[id number] (Continued) GROSS DESCRIPTION ANATOMIC SOURCE OF TISSUE (per Requisition): 1. Ileostomy 2. Hernia sac Each specimen is labeled with the patient's name and medical record number. Specimen #1 is designated "ileostomy" and consists of an annular portion of bowel (8.5 x 8 x 2.5 cm) with ileostomy site. Both ends of the bowel are stapled. Possible zendejas-pink skin is identified at the ileostomy site. The serosa is zendejas-pink and dull. The specimen is opened to reveal zendejas-pink mucosa. The wall thickness averages 0.4 cm. Commercial Credit Reviewer sections are submitted as follows: A1 - mucosal margin, A2 - ileostomy site with possible skin. Specimen #2 is designated "hernia sac" and consists of a 4 x 3 x 1.5 cm aggregate of zendejas-pink tissues with attached zendejas-yellow fatty tissue. Commercial Credit Reviewer sections are submitted in B1. gaurang/keri 10/17/20 Signed [employer] 10/18/201926 END OF REPORT HGB [id number] 09:56:00 Test Item Value Reference Range Interpretation Comments HEMOGLOBIN (test code = HGB) 11.2 g/dL 10.7-13.9 N HEMATOCRIT (test code = HCT) 33.8 % 32.1-42.1 N CHEMISTRY 7 [id number] 06:08:00 Test Item Value Reference Range Interpretation Comments SODIUM (test code = NA) 134 mEq/L 135-145 L POTASSIUM (test code = K) 4.4 mEq/L 3.5-5.0 N CHLORIDE (test code = CL) 101 mEq/L 100-115 N CARBON DIOXIDE (test code = CO2) 26 mEq/L 22-31 N ANION GAP (test code = GAP) 11.30 10-20 N GLUCOSE (test code = GLU) 94 mg/dL 65-110 N BLOOD UREA NITROGEN (test code = 7 mg/dL 7-18 N BUN) GLOMERULAR FILTRATION RATE (test 85 ml/min >60 N code = GFR) CREATININE (test code = CREAT) 0.7 mg/dL 0.5-1.0 N CALCIUM (test code = CA) 8.8 mg/dL 8.4-10.2 N LIPID PROFILE (CORONARY RISK)2020-10-18 06:08:00 Test Item Value Reference Range Interpretation Comments TRIGLYCERIDES (test 121 mg/dL Normal < 150 code = TRIG) Borderline high 150 - 199 High 200 - 499 Very High > 500 CHOLESTEROL (test code 139 mg/dL 120-200 N = CHOL) HDL CHOLESTEROL (test 73 mg/dL H HDL <4 0 = Low HDL code = HDL) Cholesterolhdl >60 = High HDL CholesterolSour ce: NCEP-ATPIII LIPOPROTEIN LDL (test 42 mg/dL <130 (DESIRABLE) code = LDL) 130-159 (BORDER LINE) >=160 (HIGH) CBC W/AUTO [id number] 05:46:00 Test Item Value Reference Range Interpretation Comments WHITE BLOOD CELL (test code = WBC) 11.9 K/mm3 6.6-12.1 N RED BLOOD CELL (test code = RBC) 3.59 M/mm3 3.45-5.01 N HEMOGLOBIN (test code = HGB) 10.9 g/dL 10.7-13.9 N HEMATOCRIT (test code = HCT) 33.4 % 32.1-42.1 N MEAN CELL VOLUME (test code = MCV) 93 fL 84.1-94.8 N MEAN CELL HGB (test code = MCH) 30.4 pg 27-35 N MEAN CELL HGB CONCETRATION (test 32.6 gm/dL 32.2-34.1 N code = MCHC) RED CELL DISTRIBUTION WIDTH (test 13.3 % 12.4-16.5 N code = RDW) PLATELET COUNT (test code = PLT) 172 K/mm3 133-385 N MEAN PLATELET VOLUME (test code = 9.4 fl 9.1-12.7 N MPV) NEUTROPHIL % (test code = NT%) 85.3 % 56.5-79.4 H LYMPHOCYTE % (test code = LY%) 6.9 % 14.3-34.3 L MONOCYTE % (test code = MO%) 7.1 % 5.1-10.4 N EOSINOPHIL % (test code = EO%) 0.0 % 0.1-3.0 L BASOPHIL % (test code = BA%) 0.1 % 0.1-1.0 N NEUTROPHIL # (test code = NT#) 10.1 K/mm3 LYMPHOCYTE # (test code = LY#) 0.8 K/mm3 MONOCYTE # (test code = MO#) 0.8 K/mm3 EOSINOPHIL # (test code = EO#) 0 K/mm3 BASOPHIL # (test code = BA#) 0.0 K/mm3 RBC MORPHOLOGY REQUIRED (test code NORMAL NORMAL = RBCM) PLATELET MORPHOLOGY REQUIRED (test NORMAL NORMAL code = PLTMR) COVID 19 Asymptomatic IH [id number] 16:58:00 Test Item Value Reference Range Interpretation Comments COVID 19 NEGATIVE NEGATIVE This test has b een Asymptomatic IH AG authorize d only for the (test code = detection ofpro teins from COVNONPUIAG) SARS-CoV-2, not for any other viruses orpathogens. Ne gative results should be treated as presumptive andconfirmed wi th a molecular assay , if necessary for patientmanageme nt. Negative result s do not rule out COVID- 19 andshould not b e used as the sole basis for treatment orpat ient management deci sions, including infec tion controldecision s. Negative result s should be considered i n thecontext of a patient's recent exposure s, history and thepresence of clinical signs and symptoms consis tent withCOVID-19. T his test has not been FD A cleared or approved; th e test hasbeen authori kalee by FDA under an Emerge ncy Use Authorization(E UA) for use by laborato david certified under the CLIA thatmeet the re quirements to perform mode rate, high or waivedcomple xity tests. This pamela t is authorized for use at thePoint of Car e (POC), i.e., in patien t care settingsoperati ng under a CLIA Certificat e of Waiver, Certifi lily ofCompliance, o r Certificate of Accreditation. This test is only authori zed for the duration of thedeclaration that circumstances e xist justifying theauthorizatio n of emergency use o f in vitro diagnostic test sfor detection and/o r diagnosis of CO VID-19 under Fovveua60 4(b)(1) of the Act, 21 U.S .C. 360bbb-3(b)(1), unless theauthorizatio n is terminated or r evoked sooner. HGB [id number] 15:08:00 Test Item Value Reference Range Interpretation Comments HEMOGLOBIN (test code = HGB) 14.6 g/dL 10.7-13.9 H HEMATOCRIT (test code = HCT) 43.9 % 32.1-42.1 H COVID 19 Asymptomatic IH [id number] 09:00:00 Test Item Value Reference Range Interpretation Comments COVID 19 NEGATIVE NEGATIVE Negative result s, from Asymptomatic IH AG patients with symptom (test code = onset beyondfiv e days, COVNONPUIAG) should be treat ed as presumptive and confirmationwit h a molecular assay , if necessary for patientmanageme nt, may be performed. Nega tive results do not ruleout COVID-19 and sh ould not be used as the sole basis fortreatment or patient management deci sions, includinginfect ion control decisio ns. Negative result s should beconsidered in the context of a pa tient's recent exposure s,history and the presenc e of clinical signs and symptomsconsist ent with COVID-19. - XR [id number] 15:33:00 [facility] : 1955 Sex: F Patient Name: NIKI MELENDREZ Unit No: [id number] EXAMS: CPT CODE: [id number] XR ENEMA 22736 GASTROGRAFIN ENEMA,10/05/2020 Total patient fluoroscopy time: 59 seconds Total patient dose: 42.7 mGy Total DAP: 12.4 Gycm 2 CLINICAL HISTORY: DIVERTICULITIS OF INTEST COMPARISON: None FINDINGS: Insulation Applicator radiograph demonstrates a right lower quadrant ostomy and right lower quadrant surgical clips. Gastrografin contrast was instilled via the rectum. There was filling of the entire colon with reflux of contrast into theterminal ileum. Appendix was not opacified. There is a moderate to high-grade short segment stricture of the distal sigmoid colon at the level of the rectosigmoid junction with mucosal irregularity suggesting mild microperforation. A few diverticula are seen in the proximal sigmoid colon. Remainder ofthe colon appeared unremarkable. CONCLUSION: Short segment stricture with associated mucosal irregularity and probable mild microperforation involving the distal sigmoid colon. Electronically Signedby Gomez Sifuentes MD on 10/05/2020 at 1533 Reported and signed by: Gomez Sifuentes MD CC: Lemuel Max MD Technologist: Khushi Lemon, RT; Maria Fernanda Cheng RT Trnscrbd D/ (1533) [id number] Orig Print D/T: S: 10/05/2020 (1536) [facility] [place] [facility] NAME: FREDRICKDELGADONIKI Radiology Department PHYS: Lemuel Reina MD [address] : 1955 AGE: 64 SEX: F [place], [place] [address] LOC: F.RAD PHONE #: [phone] EXAM DATE: 10/05/2020 STATUS: REG CLI FAX #: [phone] RAD NO: Page 1 Signed Report CHEMISTRY 7 [id number] 06:15:00 Test Item Value Reference Range Interpretation Comments SODIUM (test code = NA) 137 mEq/L 135-145 N POTASSIUM (test code = K) 3.5 mEq/L 3.5-5.0 N CHLORIDE (test code = CL) 101 mEq/L 100-115 N CARBON DIOXIDE (test code = CO2) 27 mEq/L 22-31 N ANION GAP (test code = GAP) 12.40 10-20 N GLUCOSE (test code = GLU) 78 mg/dL 65-110 N BLOOD UREA NITROGEN (test code = 4 mg/dL 7-18 L BUN) GLOMERULAR FILTRATION RATE (test 101 ml/min >60 N code = GFR) CREATININE (test code = CREAT) 0.6 mg/dL 0.5-1.0 N CALCIUM (test code = CA) 8.8 mg/dL 8.4-10.2 N CBC W/AUTO [id number] 05:58:00 Test Item Value Reference Range Interpretation Comments WHITE BLOOD CELL (test code = WBC) 10.6 K/mm3 6.6-12.1 N RED BLOOD CELL (test code = RBC) 4.02 M/mm3 3.45-5.01 N HEMOGLOBIN (test code = HGB) 12.5 g/dL 10.7-13.9 N HEMATOCRIT (test code = HCT) 38.0 % 32.1-42.1 N MEAN CELL VOLUME (test code = MCV) 95 fL 84.1-94.8 H MEAN CELL HGB (test code = MCH) 31.1 pg 27-35 N MEAN CELL HGB CONCETRATION (test 32.9 gm/dL 32.2-34.1 N code = MCHC) RED CELL DISTRIBUTION WIDTH (test 13.1 % 12.4-16.5 N code = RDW) PLATELET COUNT (test code = PLT) 162 K/mm3 133-385 N MEAN PLATELET VOLUME (test code = 9.6 fl 9.1-12.7 N MPV) NEUTROPHIL % (test code = NT%) 80.0 % 56.5-79.4 H LYMPHOCYTE % (test code = LY%) 8.6 % 14.3-34.3 L MONOCYTE % (test code = MO%) 8.5 % 5.1-10.4 N EOSINOPHIL % (test code = EO%) 1.9 % 0.1-3.0 N BASOPHIL % (test code = BA%) 0.4 % 0.1-1.0 N NEUTROPHIL # (test code = NT#) 8.5 K/mm3 LYMPHOCYTE # (test code = LY#) 0.9 K/mm3 MONOCYTE # (test code = MO#) 0.9 K/mm3 EOSINOPHIL # (test code = EO#) 0.20 K/mm3 BASOPHIL # (test code = BA#) 0.0 K/mm3 RBC MORPHOLOGY REQUIRED (test code NORMAL NORMAL = RBCM) PLATELET MORPHOLOGY REQUIRED (test NORMAL NORMAL code = PLTMR) CHEMISTRY 7 [id number] 06:36:00 Test Item Value Reference Range Interpretation Comments SODIUM (test code = NA) 137 mEq/L 135-145 N POTASSIUM (test code = K) 4.6 mEq/L 3.5-5.0 N CHLORIDE (test code = CL) 102 mEq/L 100-115 N CARBON DIOXIDE (test code = CO2) 28 mEq/L 22-31 N ANION GAP (test code = GAP) 12.10 10-20 N GLUCOSE (test code = GLU) 93 mg/dL 65-110 N BLOOD UREA NITROGEN (test code = 5 mg/dL 7-18 L BUN) GLOMERULAR FILTRATION RATE (test 125 ml/min >60 N code = GFR) CREATININE (test code = CREAT) 0.5 mg/dL 0.5-1.0 N CALCIUM (test code = CA) 8.7 mg/dL 8.4-10.2 N CBC W/AUTO [id number] 06:34:00 Test Item Value Reference Range Interpretation Comments WHITE BLOOD CELL (test 11.2 K/mm3 6.6-12.1 N code = WBC) RED BLOOD CELL (test 4.05 M/mm3 3.45-5.01 N code = RBC) HEMOGLOBIN (test code = 12.7 g/dL 10.7-13.9 N HGB) HEMATOCRIT (test code = 40.3 % 32.1-42.1 N HCT) MEAN CELL VOLUME (test 100 fL 84.1-94.8 H code = MCV) MEAN CELL HGB (test code 31.4 pg 27-35 N = MCH) MEAN CELL HGB 31.5 gm/dL 32.2-34.1 L CONCETRATION (test code = MCHC) RED CELL DISTRIBUTION 13.2 % 12.4-16.5 N WIDTH (test code = RDW) PLATELET COUNT (test 125 K/mm3 133-385 L Results verified by code = PLT) repeat analysis IMMATURE PLATELET 2.8 % 0.0-10.8 N FRACTION (test code = IPF) MEAN PLATELET VOLUME 9.5 fl 9.1-12.7 N (test code = MPV) NEUTROPHIL % (test code 83.1 % 56.5-79.4 H = NT%) LYMPHOCYTE % (test code 7.6 % 14.3-34.3 L = LY%) MONOCYTE % (test code = 8.2 % 5.1-10.4 N MO%) EOSINOPHIL % (test code 0.4 % 0.1-3.0 N = EO%) BASOPHIL % (test code = 0.3 % 0.1-1.0 N BA%) NEUTROPHIL # (test code 9.3 K/mm3 = NT#) LYMPHOCYTE # (test code 0.9 K/mm3 = LY#) MONOCYTE # (test code = 0.9 K/mm3 MO#) EOSINOPHIL # (test code 0.04 K/mm3 = EO#) BASOPHIL # (test code = 0.0 K/mm3 BA#) RBC MORPHOLOGY REQUIRED NORMAL NORMAL (test code = RBCM) PLATELET MORPHOLOGY NORMAL NORMAL REQUIRED (test code = PLTMR) COLON SEGMENT RESEC.NOT [id number] 16:03:00 RUN DATE: 09/06/20 [facility] PAGE 1 RUN TIME: 1731 Specimen Inquiry RUN USER: INTERFACE -PATIENT: NIKI MELENDREZ [facility] #: [id number] AGE/SX: 64/F ROOM: [facility] RE09/05/20REG DR: Lemuel Max MD : 57 BED: A DIS: STATUS: ADM IN TLOC: SPEC #: [id number] RECD: 09/05/20 STATUS: AMELIA IRENE #: [id number] CARLEY: 09/05/20- [facility] DR: Lemuel Max MD ENTERED: 09/05/20 SP TYPE: COLONR LUIS DR: ORDERED: LEVEL V SURGICA CODES: [id number] - COLON, NOS PROCEDURES: LEVEL V SURGICA (Incomplete) TISSUES: COLON, NOS - RECTUM AND SIGMOID COLON CLINICAL HISTORY 64 year old, diverticulitis (keri) FINAL DIAGNOSIS Rectum and sigmoid, resection: - diverticular disease CPT code(s): 90894 [facility]/d GROSS DESCRIPTION ANATOMIC SOURCE OF TISSUE (per Requisition): Rectum and sigmoid The specimen is received in a formalin-filled container, labeled with the patient's name and designated "rectum and sigmoid". The specimen consists of a 12 x 2 cm portion of large bowel with attached pericolonic fat. The serosa is zendejas-pink and dull. The large bowel is opened to reveal multiple diverticula. Some are filled with fecal material. No perforation is grossly identified. Also received in the same container are four annular portions of mucosa ranging from 1.5 to 2.5 cm. The mucosae are zendejas-pink. Commercial Credit Reviewer sections are submitted as follows: A1 through A3 - diverticula, A4 and A5 - community health program representative section of each annular portion of mucosa. abigail 09/05/20 Signed Reyna Negro MD 09/06/20 1603 END OF REPORT CBC W/AUTO [id number] 07:59:00 Test Item Value Reference Range Interpretation Comments WHITE BLOOD CELL (test 12.4 K/mm3 6.6-12.1 H Resul ts verified by code = WBC) repeat analysis RED BLOOD CELL (test 3.91 M/mm3 3.45-5.01 N code = RBC) HEMOGLOBIN (test code = 12.3 g/dL 10.7-13.9 N HGB) HEMATOCRIT (test code = 36.4 % 32.1-42.1 N HCT) MEAN CELL VOLUME (test 93 fL 84.1-94.8 N code = MCV) MEAN CELL HGB (test code 31.5 pg 27-35 N = MCH) MEAN CELL HGB 33.8 gm/dL 32.2-34.1 N CONCETRATION (test code = MCHC) RED CELL DISTRIBUTION 12.8 % 12.4-16.5 N WIDTH (test code = RDW) PLATELET COUNT (test 158 K/mm3 133-385 N code = PLT) MEAN PLATELET VOLUME 10.0 fl 9.1-12.7 N (test code = MPV) MANUAL DIFF REQUIRED YES (test code = MDIFF) RBC MORPHOLOGY REQUIRED NORMAL NORMAL (test code = RBCM) PLATELET MORPHOLOGY NORMAL NORMAL REQUIRED (test code = PLTMR) NUCLEATED RED BLOOD CELL 3 0-10 N (test code = NRBC) WBC [id number] 07:59:00 Test Item Value Reference Range Interpretation Comments TOTAL CELLS COUNTED (test 100 #CELLS code = TCC) SEGMENTED NEUTROPHILS (test 74 % 56.5-79.4 N code = SEG) BAND NEUTROPHIL (test code = 9 % 0-5 H BAND) LYMPHOCYTE (test code = 5 % 20-40 L LYMPH) MONOCYTE (test code = MON) 3 % 0-8 N PLATELET ESTIMATE (test code ADEQUATE ADEQ = PLTEST) PLATELET MORPHOLOGY (test PLATELET CLUMPS NORMAL A code = PLTMORPH) CBC W/AUTO [id number] 07:55:00 Test Item Value Reference Range Interpretation Comments WHITE BLOOD CELL (test 12.4 K/mm3 6.6-12.1 H Resul ts verified by code = WBC) repeat analysis RED BLOOD CELL (test 3.91 M/mm3 3.45-5.01 N code = RBC) HEMOGLOBIN (test code = 12.3 g/dL 10.7-13.9 N HGB) HEMATOCRIT (test code = 36.4 % 32.1-42.1 N HCT) MEAN CELL VOLUME (test 93 fL 84.1-94.8 N code = MCV) MEAN CELL HGB (test code 31.5 pg 27-35 N = MCH) MEAN CELL HGB 33.8 gm/dL 32.2-34.1 N CONCETRATION (test code = MCHC) RED CELL DISTRIBUTION 12.8 % 12.4-16.5 N WIDTH (test code = RDW) PLATELET COUNT (test 158 K/mm3 133-385 N code = PLT) MEAN PLATELET VOLUME 10.0 fl 9.1-12.7 N (test code = MPV) MANUAL DIFF REQUIRED YES (test code = MDIFF) RBC MORPHOLOGY REQUIRED NORMAL NORMAL (test code = RBCM) PLATELET MORPHOLOGY NORMAL NORMAL REQUIRED (test code = PLTMR) WBC [id number] 07:55:00 Test Item Value Reference Range Interpretation Comments SEGMENTED NEUTROPHILS (test code = SEG) % 56.5-79.4 LYMPHOCYTE (test code = LYMPH) % 20-40 CBC W/AUTO [id number] 07:55:00 Test Item Value Reference Range Interpretation Comments WHITE BLOOD CELL (test 12.4 K/mm3 6.6-12.1 H Resul ts verified by code = WBC) repeat analysis RED BLOOD CELL (test 3.91 M/mm3 3.45-5.01 N code = RBC) HEMOGLOBIN (test code = 12.3 g/dL 10.7-13.9 N HGB) HEMATOCRIT (test code = 36.4 % 32.1-42.1 N HCT) MEAN CELL VOLUME (test 93 fL 84.1-94.8 N code = MCV) MEAN CELL HGB (test code 31.5 pg 27-35 N = MCH) MEAN CELL HGB 33.8 gm/dL 32.2-34.1 N CONCETRATION (test code = MCHC) RED CELL DISTRIBUTION 12.8 % 12.4-16.5 N WIDTH (test code = RDW) PLATELET COUNT (test 158 K/mm3 133-385 N code = PLT) MEAN PLATELET VOLUME 10.0 fl 9.1-12.7 N (test code = MPV) MANUAL DIFF REQUIRED YES (test code = MDIFF) RBC MORPHOLOGY REQUIRED NORMAL NORMAL (test code = RBCM) PLATELET MORPHOLOGY NORMAL NORMAL REQUIRED (test code = PLTMR) WBC [id number] 07:55:00 Test Item Value Reference Range Interpretation Comments SEGMENTED NEUTROPHILS (test code = SEG) % 56.5-79.4 LYMPHOCYTE (test code = LYMPH) % 20-40 CHEMISTRY 7 [id number] 06:56:00 Test Item Value Reference Range Interpretation Comments SODIUM (test code = NA) 136 mEq/L 135-145 N POTASSIUM (test code = K) 4.2 mEq/L 3.5-5.0 N CHLORIDE (test code = CL) 101 mEq/L 100-115 N CARBON DIOXIDE (test code = CO2) 30 mEq/L 22-31 N ANION GAP (test code = GAP) 8.90 10-20 L GLUCOSE (test code = GLU) 83 mg/dL 65-110 N BLOOD UREA NITROGEN (test code = 6 mg/dL 7-18 L BUN) GLOMERULAR FILTRATION RATE (test 72 ml/min >60 N code = GFR) CREATININE (test code = CREAT) 0.8 mg/dL 0.5-1.0 N CALCIUM (test code = CA) 8.9 mg/dL 8.4-10.2 N CHEMISTRY 7 [id number] 08:37:00 Test Item Value Reference Range Interpretation Comments SODIUM (test code = NA) 137 mEq/L 135-145 N POTASSIUM (test code = K) 3.5 mEq/L 3.5-5.0 N CHLORIDE (test code = CL) 102 mEq/L 100-115 N CARBON DIOXIDE (test code = CO2) 28 mEq/L 22-31 N ANION GAP (test code = GAP) 11.00 10-20 N GLUCOSE (test code = GLU) 83 mg/dL 65-110 N BLOOD UREA NITROGEN (test code = 4 mg/dL 7-18 L BUN) GLOMERULAR FILTRATION RATE (test 101 ml/min >60 N code = GFR) CREATININE (test code = CREAT) 0.6 mg/dL 0.5-1.0 N CALCIUM (test code = CA) 8.4 mg/dL 8.4-10.2 N CBC W/AUTO [id number] 08:31:00 Test Item Value Reference Range Interpretation Comments WHITE BLOOD CELL (test code = WBC) 4.3 K/mm3 6.6-12.1 L RED BLOOD CELL (test code = RBC) 3.77 M/mm3 3.45-5.01 N HEMOGLOBIN (test code = HGB) 11.8 g/dL 10.7-13.9 N HEMATOCRIT (test code = HCT) 34.6 % 32.1-42.1 N MEAN CELL VOLUME (test code = MCV) 92 fL 84.1-94.8 N MEAN CELL HGB (test code = MCH) 31.3 pg 27-35 N MEAN CELL HGB CONCETRATION (test 34.1 gm/dL 32.2-34.1 N code = MCHC) RED CELL DISTRIBUTION WIDTH (test 12.6 % 12.4-16.5 N code = RDW) PLATELET COUNT (test code = PLT) 163 K/mm3 133-385 N MEAN PLATELET VOLUME (test code = 9.4 fl 9.1-12.7 N MPV) NEUTROPHIL % (test code = NT%) 69.8 % 56.5-79.4 N LYMPHOCYTE % (test code = LY%) 20.5 % 14.3-34.3 N MONOCYTE % (test code = MO%) 7.8 % 5.1-10.4 N EOSINOPHIL % (test code = EO%) 1.2 % 0.1-3.0 N BASOPHIL % (test code = BA%) 0.5 % 0.1-1.0 N NEUTROPHIL # (test code = NT#) 3.0 K/mm3 LYMPHOCYTE # (test code = LY#) 0.9 K/mm3 MONOCYTE # (test code = MO#) 0.3 K/mm3 EOSINOPHIL # (test code = EO#) 0.05 K/mm3 BASOPHIL # (test code = BA#) 0.0 K/mm3 RBC MORPHOLOGY REQUIRED (test code NORMAL NORMAL = RBCM) PLATELET MORPHOLOGY REQUIRED (test NORMAL NORMAL code = PLTMR) COVID 19 Asymptomatic IH [id number] 20:04:00 Test Item Value Reference Range Interpretation Comments COVID 19 NEGATIVE NEGATIVE This test has b een Asymptomatic IH AG authorize d only for the (test code = detection ofpro teins from COVNONPUIAG) SARS-CoV-2, not for any other viruses orpathogens. Ne gative results should be treated as presumptive andconfirmed wi th a molecular assay , if necessary for patientmanageme nt. Negative result s do not rule out COVID- 19 andshould not b e used as the sole basis for treatment orpat ient management deci sions, including infec tion controldecision s. Negative result s should be considered i n thecontext of a patient's recent exposure s, history and thepresence of clinical signs and symptoms consis tent withCOVID-19. T his test has not been FD A cleared or approved; th e test hasbeen authori kalee by FDA under an Emerge ncy Use Authorization(E UA) for use by laborato dav[facility] certified under the CLIA thatmeet the re quirements to perform mode rate, high or waivedcomple xity tests. This pamela t is authorized for use at thePoint of Car e (POC), i.e., in patien t care settingsoperati ng under a CLIA Certificat e of Waiver, Certifi lily ofCompliance, o r Certificate of Accreditation. This test is only authori zed for the duration of thedeclaration that circumstances e xist justifying theauthorizatio n of emergency use o f in vitro diagnostic test sfor detection and/o r diagnosis of CO VID-19 under Cnoszof65 4(b)(1) of the Act, 21 U.S .C. 360bbb-3(b)(1), unless theauthorizatio n is terminated or r evoked sooner. HGB [id number] 15:32:00 Test Item Value Reference Range Interpretation Comments HEMOGLOBIN (test code = HGB) 13.2 g/dL 10.7-13.9 N HEMATOCRIT (test code = HCT) 39.5 % 32.1-42.1 N
[2022-07-07] MEDS ORDERED: NA CHLORIDE 0.9% 1,000 ML ONE (23:44)
[2022-07-07] MEDS ORDERED: ONDANSETRON 4 MG/2 ML VIAL ONE (23:44)
[2022-07-07] MEDS ORDERED: FAMOTIDINE 20 MG/2 ML VIAL IV ONE (23:45)
[2022-07-08 00:03] LABS: Absolute Lymphocytes (CBC) 0.4 K/uL (0.7-4.9); Hematocrit 45.3 % (36.0-45.0); Lymphocytes % 3.8 % (15.3-44.8); MCV 91.3 fL (80-100); MPV 6.9 fL (7.6-11.3); RBC Red Blood Cell Count 4.96 M/uL (3.86-4.86)
[2022-07-08 00:30] LABS: Albumin 4.6 g/dL (3.4-5.0); Bilirubin Total 0.9 mg/dL (0.2-1.0); Protein, Total 8.7 g/dL (6.4-8.2)
[2022-07-08] MEDS ORDERED: ONDANSETRON 4 MG/2 ML VIAL ONE ×3 (02:16→15:01)
[2022-07-08] MEDS ORDERED: MORPHINE 4 MG/ML SYR ONE (02:16)
--- NOTE | 2022-07-08 02:18 | ER ---
Nurse's Notes [facility] Name: Niki Melendrez Age: 66 yrs Sex: Female : 1955 Arrival Date: 07/07/2022 Time: 23:12 Bed 23 Private MD: Diagnosis: Small bowel obstruction;Abdominal pain, Generalized;Nausea with vomiting, unspecified Presentation: 07/07 23:28 Chief complaint: Patient states: "I'm have really bad abdominal pain. It started today. as6 I've been really nauseous and vomiting all day". Coronavirus screen: At this time, the client does not indicate any symptoms associated with coronavirus-19. Ebola Screen: No symptoms or risks identified at this time. Initial Sepsis Screen: Does the patient meet any 2 criteria? No. Patient's initial sepsis screen is negative. Does the patient have a suspected source of infection? No. Patient's initial sepsis screen is negative. Risk Assessment: Do you want to hurt yourself or someone else? Patient reports no desire to harm self or others. Onset of symptoms was July 07, 2022. 23:28 Method Of Arrival: Wheelchair as6 23:28 Acuity: MARCUS 3 as6 Historical: - Allergies: 23:30 No Known Allergies; as6 - Home Meds: 23:30 atorvastatin 40 mg Oral tab 1 tab once daily [Active]; as6 - PMHx: 23:30 Hyperlipidemia; Hypertension; as6 - PSHx: 23:30 Appendectomy; colon surgery; tubal ligation; as6 - Immunization history:: Client reports receiving the 2nd dose of the Covid vaccine, moderna . - Social history:: Smoking status: Patient denies any tobacco usage or history of. Screenin:31 Abuse screen: Denies threats or abuse. Denies injuries from another. Nutritional as6 screening: No deficits noted. Tuberculosis screening: No symptoms or risk factors identified. Fall Risk None identified. Assessment: 23:30 General: Appears uncomfortable, ill, Behavior is cooperative, restless. Pain: Complains as6 of pain in abdomen Pain currently is 10 out of 10 on a pain scale. Neuro: Level of Consciousness is awake, alert. Respiratory: Respiratory effort is even, unlabored. GI: Reports upper abdominal pain, nausea, vomiting. 07/08 00:24 Reassessment: Patient appears in no apparent distress at this time. Patient and/or hb family updated on plan of care and expected duration. Pain level reassessed. Patient is alert, oriented x 3, equal unlabored respirations, skin warm/dry/pink. 06:24 Reassessment: connected NGT intermittent low suction, minimal brown fluids in aa9 collection chamber.. Vital Signs: 07/07 23:28 BP 174 / 89; Pulse 86; Resp 18 S; Temp 98.2(O); Pulse Ox 97% on R/A; Weight 62.6 kg as6 (R); Height 5 ft. 4 in. (162.56 cm) (R); Pain 10/10; 07/08 01:00 BP 129 / 71; Pulse 96; Resp 18 S; Pulse Ox 94% on R/A; as6 02:19 BP 145 / 82; Pulse 104; Resp 16 S; Pulse Ox 97% on R/A; as6 07/07 23:28 Body Mass Index 23.69 (62.60 kg, 162.56 cm) as6 ED Course: 07/07 23:12 Patient arrived in ED. ja2 23:26 Raymond Gotti DO is Attending Physician. ms3 23:27 Arslan Aj, ANNABELLA is Primary Nurse. as6 23:30 Triage completed. as6 23:30 Arm band placed on. as6 23:31 Bed in low position. Call light in reach. Side rails up X2. Adult w/ patient. Pulse ox as6 on. NIBP on. 23:47 Inserted saline lock: 22 gauge in left antecubital area, using aseptic technique. Blood as6 collected. 23:57 CBC with Diff Sent. as6 23:57 CMP Sent. as6 23:57 Lipase Sent. as6 07/08 00:42 CT Abd/Pelvis - IV Contrast Only In Process Unspecified. EDMS 02:15 Myron Avila MD is Hospitalizing Provider. ms3 03:30 NGT: inserted 16 Fr. via right nare. verified placement of air over stomach, verified as6 return of gastric contents, Patient tolerated well. Administered Medications: 07/07 23:50 Drug: NS 0.9% 1000 ml Route: IV; Rate: 1 bolus; Site: left antecubital; as6 23:50 Drug: Pepcid (famotidine) 20 mg Route: IVP; Site: left antecubital; as6 23:57 Drug: Zofran (Ondansetron) 4 mg Route: IVP; Site: left antecubital; as6 08 02:14 Drug: morphine 4 mg Route: IVP; Infused Over: 4 mins; Site: left antecubital; as6 02:14 Drug: Zofran (Ondansetron) 4 mg Route: IVP; Site: left antecubital; as6 02:44 CANCELLED (Other Intervention Used): NS 0.9% 1000 ml IV at 125 ml/hr continuous la1 02:45 CANCELLED (Other Intervention Used): D5-1/2 NS 1000 ml IV at 100 ml/hr continuous la1 03:08 Drug: Zosyn (piperacillin-tazobactam) 3.375 grams Route: IVPB; Infused Over: 60 mins; as6 Site: left antecubital; 03:08 Drug: D5-1/2 NS with KCl 20 mEq/L 1000 ml Route: IV; Rate: 100 ml/hr; Site: left as6 antecubital; Outcome: 02:18 Decision to Hospitalize by Provider. ms3 17:44 Admitted to Tele accompanied by tech, room 220, Report called to [facility] 17:44 Condition: stable [facility] 17:44 Instructed on the need for admit. 18:07 Patient left the ED. Signatures: Dispatcher [employer] EDMegan Curiel RN RN Tenisha Gruber RN Raymond Branch DO DO ms3 Michell Cedeño2 Arslan Aj RN RN as6 Jossie Pritchard RN RN 6 Faviola Hayes RN RN aa9 Attema, Lee [place] [id number]
--- NOTE | 2022-07-08 02:18 | EDPHYS ---
Physician Documentation [facility] Name: Niki Melendrez Age: 66 yrs Sex: Female : 1955 Arrival Date: 07/07/2022 Time: 23:12 Bed 23 Private MD: ED Physician Raymond Gotti HPI: 07/08 02:18 This 66 yrs old Female presents to ER via Wheelchair with complaints of Abdominal Pain, ms3 Vomiting. 02:18 The patient presents to the emergency department with nausea, vomiting, abdominal pain. ms3 Onset: The symptoms/episode began/occurred today. Possible causes: unknown. The symptoms are aggravated by nothing. The symptoms are alleviated by nothing. Associated signs and symptoms: Pertinent positives: abdominal pain, nausea, vomiting. Severity of symptoms: At their worst the symptoms were severe in the emergency department the symptoms are unchanged Pain is currently a . 66-year-old female with past medical history of hyperlipidemia, hypertension presents for abdominal pain, nausea, vomiting that began earlier today. Patient denies alleviating or inciting factors. Patient denies fevers, chills.. Historical: - Allergies: 07/07 23:30 No Known Allergies; as6 - Home Meds: 23:30 atorvastatin 40 mg Oral tab 1 tab once daily [Active]; as6 - PMHx: 23:30 Hyperlipidemia; Hypertension; as6 - PSHx: 23:30 Appendectomy; colon surgery; tubal ligation; as6 - Immunization history:: Client reports receiving the 2nd dose of the Covid vaccine, moderna . - Social history:: Smoking status: Patient denies any tobacco usage or history of. ROS: 07/08 02:18 Constitutional: Negative for fever, and chills. Neck: Negative for injury, pain, and ms3 swelling, Cardiovascular: Negative for chest pain, and palpitations. Respiratory: Negative for shortness of breath, cough, wheezing, and pleuritic chest pain, MS/Extremity: Negative for injury and deformity, Skin: Negative for injury, rash, and discoloration, Neuro: Negative for headache, weakness, numbness, tingling. Psych: Negative for depression, anxiety, suicide ideation, homicidal ideation, and hallucinations. Abdomen/GI: Positive for abdominal pain, nausea and vomiting. All other systems are negative. Exam: 02:18 Constitutional: This is a well developed, well nourished patient who is awake, alert, ms3 and in no acute distress. Head/Face: Normocephalic, atraumatic. Neck: Trachea midline, no cervical lymphadenopathy. Supple, full range of motion without nuchal rigidity, or vertebral point tenderness. No Meningismus. Chest/axilla: Normal chest wall appearance and motion. Nontender with no deformity. Cardiovascular: Regular rate and rhythm with a normal S1 and S2. No gallops, murmurs, or rubs. Normal PMI, no JVD. No pulse deficits. Respiratory: Lungs have equal breath sounds bilaterally, clear to auscultation and percussion. No rales, rhonchi or wheezes noted. No increased work of breathing, no retractions or nasal flaring. 02:18 Skin: Warm, dry with normal turgor. Normal color with no rashes, no lesions, and no evidence of cellulitis. MS/ Extremity: Pulses equal, no cyanosis. Neurovascular intact. Full, normal range of motion. Psych: Awake, alert, with orientation to person, place and time. Behavior, mood, and affect are within normal limits. 02:18 Abdomen/GI: Inspection: abdomen appears normal, Bowel sounds: normal, Palpation: severe abdominal tenderness, in all quadrants. Vital Signs: 07/07 23:28 BP 174 / 89; Pulse 86; Resp 18 S; Temp 98.2(O); Pulse Ox 97% on R/A; Weight 62.6 kg as6 (R); Height 5 ft. 4 in. (162.56 cm) (R); Pain 10/10; 07/08 01:00 BP 129 / 71; Pulse 96; Resp 18 S; Pulse Ox 94% on R/A; as6 02:19 BP 145 / 82; Pulse 104; Resp 16 S; Pulse Ox 97% on R/A; as6 07/07 23:28 Body Mass Index 23.69 (62.60 kg, 162.56 cm) as6 MDM: 07/07 23:26 Patient medically screened. ms3 07/08 02:22 Differential diagnosis: Nonspecific abd pain, gastritis, diverticulitis, obstruction. ms3 Data reviewed: vital signs, nurses notes, lab test result(s), radiologic studies, and as a result, I will admit patient. Counseling: I had a detailed discussion with the patient and/or guardian regarding: the historical points, exam findings, and any diagnostic results supporting the discharge/admit diagnosis, lab results, radiology results, the need for further work-up and treatment in the hospital. ED course: Discussed case with Dr Allan and he will consult on patient. Discussed case with Alverto Pandey NP, and he accepts patient on behalf of Dr Avila.. 07/07 23:27 Order name: CBC with Diff; Complete Time: 02:08 ms3 07/07 23:27 Order name: CMP; Complete Time: 02:08 ms3 07/07 23:27 Order name: Lipase; Complete Time: 02:08 ms3 07/07 23:27 Order name: Urine Microscopic Only ms3 07/08 01:12 Order name: CREATININE WHOLE BLOOD; Complete Time: 02:08 EDMS 07/08 01:53 Order name: SARS RAPID; Complete Time: 02:45 tw5 07/07 23:27 Order name: CT Abd/Pelvis - IV Contrast Only ms3 07/08 02:57 Order name: Urine Dipstick-Ancillary EDMS 07/08 03:31 Order name: Chest Single View XRAY as6 07/07 23:27 Order name: IV Saline Lock; Complete Time: 23:57 ms3 07/07 23:27 Order name: Labs collected and sent; Complete Time: 23:57 ms3 07/07 23:27 Order name: Urine Dipstick-Ancillary (obtain specimen); Complete Time: 03:30 ms3 07/08 02:07 Order name: Nasogastric Tube; Complete Time: 03:30 ms3 Administered Medications: 07/07 23:50 Drug: NS 0.9% 1000 ml Route: IV; Rate: 1 bolus; Site: left antecubital; as6 23:50 Drug: Pepcid (famotidine) 20 mg Route: IVP; Site: left antecubital; as6 23:57 Drug: Zofran (Ondansetron) 4 mg Route: IVP; Site: left antecubital; as6 07/08 02:14 Drug: morphine 4 mg Route: IVP; Infused Over: 4 mins; Site: left antecubital; as 02:14 Drug: Zofran (Ondansetron) 4 mg Route: IVP; Site: left antecubital; as6 02:44 CANCELLED (Other Intervention Used): NS 0.9% 1000 ml IV at 125 ml/hr continuous la1 02:45 CANCELLED (Other Intervention Used): D5-1/2 NS 1000 ml IV at 100 ml/hr continuous la1 03:08 Drug: Zosyn (piperacillin-tazobactam) 3.375 grams Route: IVPB; Infused Over: 60 mins; as6 Site: left antecubital; 03:08 Drug: D5-1/2 NS with KCl 20 mEq/L 1000 ml Route: IV; Rate: 100 ml/hr; Site: left as6 antecubital; Disposition Summary: 07/08/22 02:18 Hospitalization Ordered Hospitalization Status: Inpatient Admission ms3 Provider: Myron Avila ms3 Condition: Stable ms3 Problem: new ms3 Symptoms: are unchanged ms3 Bed/Room Type: Standard ms3 Location: Telemetry/MedSurg (Inpatient)(07/08/22 16:33) dw Room Assignment: 220(07/08/22 16:33) dw Diagnosis - Small bowel obstruction ms3 - Abdominal pain, Generalized ms3 - Nausea with vomiting, unspecified ms3 Forms: - Medication Reconciliation Form ms3 - SBAR form ms3 Signatures: Dispatcher [employer] EDMS Margaux Ray RN RN mw Woody, Diana, RN RN dw Attema, Lee, STRAWHAT BLOCKING OPERATOR-C STRAWHAT BLOCKING OPERATOR-Cla1 Raymond Gotti DO DO ms3 Arslan Aj RN RN as6 Corrections: (The following items were deleted from the chart) 02:44 02:24 NS 0.9% 1000 ml IV at 125 ml/hr continuous ordered. ms3 la1 02:45 02:45 D5-1/2 NS 1000 ml IV at 100 ml/hr continuous ordered. la1 la1 02:45 02:18 Telemetry/MedSurg (Inpatient) ms3 mw 02:45 02:18 ms3 mw 16:33 02:45 [facility] ER HOLD mw dw 16:33 02:45 ERHOLD- mw dw
[2022-07-08 02:27] LABS: SARS-CoV-2 Antigen Rapid Res Negative (Negative)
[2022-07-08] MEDS ORDERED: LIDOCAINE VISCOUS 2% SOLN 15 ML UDC ONE (02:43)
[2022-07-08 02:57] LABS: Urine Blood Trace-intact (Negative); Urine Glucose Negative (Negative); Urine Protein Trace (Negative); Urine Specific Gravity 1.015 (1.005-1.030); Urine pH 6.5 (5.0-7.0)
--- NOTE | 2022-07-08 02:59 | P.HP ---
Certification for Inpatient Patient admitted to: Inpatient With expected LOS: >2 Midnights Patient will require the following post-hospital care: None Practitioner: I am a practitioner with admitting privileges, knowledge of patient current condition, hospital course, and medical plan of care. Services: Services provided to patient in accordance with Admission requirements found in Title 42 Section 412.3 of the Code of Federal Regulations Patient History Date of Service: 07/08/22 Reason for admission: SBO History of Present Illness: 66-year-old female with history of hyperlipidemia, previous bouts of diverticulitis with perforation which required resection/previous ostomy which is since been reversed about 2 years ago presents the emergency department for abdominal pain, nausea and vomiting. She reports her symptoms began this afternoon. The surgery she had was performed by Dr. Flor at [facility]. She was evaluated here in the emergency department her labs were significant for mild hypokalemia, mild leukocytosis with hemoconcentration CT of the abdomen pelvis with contrast shows findings compatible with small bowel obstruction with transition to decompressed loops of bowel at the surgical enteroenteric anastomosis in the right lower abdomen, moderate amount of free fluid and mild mesenteric edema, hepatic steatosis as well as an ill-defined nodular opacity in left lung base measuring 1.3 cm recommend prompt noncontrast CT for further evaluation. ED physician spoke to general surgery on-call who will consult on patient. Will admit patient for further evaluation and management of her small bowel obstruction. Allergies No Known Allergies Allergy (Unverified 07/11/12 02:47) Home Medications: Aspirin [Aspir-Low] 1 tab PO DAILY 12/23/17 Atorvastatin Calcium [Lipitor] 40 mg PO BEDTIME 12/23/17 Vit D3 1 cap PO DAILY 06/15/20 Zolpidem Tartrate 10 mg PO BEDTIME PRN 06/15/20 Ciprofloxacin HCl [Cipro 500 MG Tablet] 500 mg PO BID #14 tab 06/17/20 Tramadol HCl [Ultram] 50 mg PO Q6H PRN #20 tablet 06/17/20 metroNIDAZOLE [Flagyl] 500 mg PO Q8H #21 tablet 06/17/20 - Past Medical/Surgical History Diabetic: No -: Hyperlipidemia -: Diverticulitis -: Colonoscopy -: Appendectomy -: Colon resection with ostomy/reversal 2019 Psychosocial/ Personal History: Patient is retired, lives at home with her - Family History Family History: Reviewed- Non-Contributory - Social History Smoking Status: Former smoker Alcohol use: Yes CD- Drugs: No Caffeine use: Yes Place of Residence: Home Review of Systems 10-point ROS is otherwise unremarkable Gastrointestinal: Nausea, Vomiting, Abdominal Pain Physical Examination - Physical Exam General: Alert, In no apparent distress, Oriented x3 HEENT: Atraumatic, PERRLA, Mucous membr. moist/pink, EOMI, Sclerae nonicteric Neck: Supple, 2+ carotid pulse no bruit, No LAD, Without JVD or thyroid abnormality Respiratory: Clear to auscultation bilaterally, Normal air movement Cardiovascular: Regular rate/rhythm, Normal S1 S2 Capillary refill: <2 Seconds Gastrointestinal: Hypoactive, Distended, Tenderness (Mild generalized abdominal tenderness) Musculoskeletal: No tenderness Integumentary: No rashes Neurological: Normal speech, Normal strength at 5/5 x4 extr, Normal tone, Normal affect - Studies Laboratory Data (last 24 hrs) 07/07/22 23:49: Sodium 134 L, Potassium 3.0 L, BUN 12, Creatinine 0.92, Glucose 171 H, Total Bilirubin 0.9, AST 23, ALT 31, Alkaline Phosphatase 82, Lipase 90 07/07/22 23:49: WBC 11.3 H, Hgb 15.6 H, Hct 45.3 H, Plt Count 216 Assessment and Plan - Plan Assessment: SBO Hyperlipidemia Incidental finding1.3 cm nodular opacity left lung base Plan: SBO: NPO, IVF, NGT to LIWS, ABX, surgical consult in place notified by ED physician. PRN pain medications and antiemetics, ambulation encouraged. Hyperlipidemia: Hold oral meds, restart when appropriate. Incidental finding1.3 cm nodular opacity left lung base: Discussed at length with patient she reports she is previously aware of this finding as well as her primary care doctor Dr. Lowery. Recommended CT of the chest without contrast for further evaluation. Discussed importance of follow-up/additional imaging. DVT PPX:SCD Code status:Full Discharge Plan: Home Plan to discharge in: Greater than 2 days - Advance Directives Does patient have a Living Will: No Does patient have a Durable POA for Healthcare: No - Code Status/Comfort Care Code Status Assessed: Yes (Full code) Critical Care: No Time Spent Managing Pts Care (In Minutes): 70
[2022-07-08] MEDS ORDERED: NA CHLORIDE 0.9% 100 ML ONE ×2 (03:05→09:34)
[2022-07-08] MEDS ORDERED: PIPERACIL/TAZO 3.375 GM VIAL IV ONE ×2 (03:06→09:35)
[2022-07-08] MEDS ORDERED: D5.45NS W/KCL 20MEQ 1,000 ML IV ONE (03:06)
[2022-07-08 03:29] LABS: Urine Bacteria >50 /HPF (<20); Urine Granular Casts 0-5 /LPF (None Seen); Urine Mucus 2+ /HPF (None Seen); Urine RBC None Seen /HPF (None Seen)
[2022-07-08 03:54] VITALS: BMI 23.6
[2022-07-08] MEDS: D5.45NS W/KCL 20MEQ 1,000 ML IV SCH ×2 (07:35→20:54)
[2022-07-08] MEDS: PIPER TAZO 3.375 GM in NA CHLORIDE 0.9% 100 ML IV SCH ×2 (09:00→20:54)
[2022-07-08] MEDS: MORPHINE 2 MG/ML SYR IV PRN ×3 (09:38→20:38)
[2022-07-08] MEDS: ONDANSETRON 4 MG/2 ML VIAL IV PRN ×3 (09:39→20:38)
[2022-07-08] MEDS ORDERED: MORPHINE 2 MG/ML SYR ONE ×2 (09:41→15:01)
[2022-07-08] MEDS: KCL 20 MEQ/100 mL IVPB 20 MEQ/100 ML BAG IV SCH ×2 (11:00→13:00)
--- NOTE | 2022-07-08 13:50 | P.PN ---
Subjective Date of Service: 07/08/22 Patient still without having flatus. NG tube is to suction. She does feel better. Abdomen is less distended. Surgery consultation appreciated Review of Systems 10-point ROS is otherwise unremarkable Physical Examination - Vital Signs Temperature: 97.6 F Blood Pressure: 119/74 Pulse: 84 Respirations: 16 Pulse Ox (%): 97 - Physical Exam General: Alert, In no apparent distress, Oriented x3 HEENT: Atraumatic, PERRLA, Other (NG tube in place), EOMI Respiratory: Clear to auscultation bilaterally, Normal air movement Cardiovascular: Regular rate/rhythm, Normal S1 S2 Gastrointestinal: Soft and benign, Non-distended, No tenderness, No rebound, No guarding, Absent bowel sounds Musculoskeletal: No tenderness Integumentary: No rashes Neurological: Normal speech, Normal tone, Normal affect Lymphatics: No axilla or inguinal lymphadenopathy - Studies Laboratory Data (last 24 hrs) 07/07/22 23:49: Sodium 134 L, Potassium 3.0 L, BUN 12, Creatinine 0.92, Glucose 171 H, Total Bilirubin 0.9, AST 23, ALT 31, Alkaline Phosphatase 82, Lipase 90 07/07/22 23:49: WBC 11.3 H, Hgb 15.6 H, Hct 45.3 H, Plt Count 216 Medications List Reviewed: Yes Assessment & Plan - Problems (Diagnosis) (1) Small bowel obstruction Current Visit: Yes Status: Acute (2) Essential hypertension Current Visit: No Status: Acute - Plan Plan: 1. NG tube to low intermittent wall suction 2. Surgery consultation 3. IV hydration 4. Pain control 5. Antiemetics 6. Antibiotic therapy 7. GI DVT prophylaxis Discharge Plan: Home Plan to discharge in: 48 Hours - Advance Directives Does patient have a Living Will: No Does patient have a Durable POA for Healthcare: No - Code Status/Comfort Care Code Status Assessed: Yes Code Status: Full Code Critical Care: No Time Spent Managing PTS Care (In Minutes): 30
[2022-07-08] MEDS ORDERED: KCL 20 MEQ/100 mL IVPB 100 ML IV ONE (15:01)
[2022-07-08] MEDS ORDERED: WATER FOR INJ,STERILE 30 ML ONE (17:14)
[2022-07-08] MEDS ORDERED: PNEUMOCOCCAL VACCINE 0.5 ML IMVAC ONE (18:00)
[2022-07-08] MEDS ORDERED: HYDROMORPHONE HCL 0.5 MG/0.5 ML INJ IV ONE (19:48)
[2022-07-09] MEDS: MORPHINE 2 MG/ML SYR IV PRN ×4 (00:56→20:45)
[2022-07-09] MEDS: PIPER TAZO 3.375 GM in NA CHLORIDE 0.9% 100 ML IV SCH ×3 (00:56→18:40)
[2022-07-09] MEDS: ONDANSETRON 4 MG/2 ML VIAL IV PRN ×4 (00:57→20:36)
[2022-07-09 03:40] LABS: Absolute Lymphocytes (CBC) 0.8 K/uL (0.7-4.9); Hematocrit 36.8 % (36.0-45.0); MCV 92.5 fL (80-100); RBC Red Blood Cell Count 3.97 M/uL (3.86-4.86)
[2022-07-09 04:02] LABS: Albumin 3.3 g/dL (3.4-5.0); Bilirubin Total 0.8 mg/dL (0.2-1.0); Magnesium 2.4 mg/dL (1.8-2.4); Potassium 4.2 mmol/L (3.5-5.1); Protein, Total 6.5 g/dL (6.4-8.2)
[2022-07-09] MEDS: D5.45NS W/KCL 20MEQ 1,000 ML IV SCH ×3 (06:28→23:35)
--- NOTE | 2022-07-09 08:24 | RAD REPORT ---
EXAM DESCRIPTION: RAD - Abdomen 1 View (KUB) - 07/09/2022 5:45 am CLINICAL HISTORY: eval SBO Pain COMPARISON: Abdomen Pelvis W Contrast dated 07/08/2022 FINDINGS: Enteric tube tip is in the stomach. Previously noted small bowel obstruction has significa ntly improved. No suspicious calcifications.
--- NOTE | 2022-07-09 10:54 | RAD REPORT ---
EXAM DESCRIPTION: XR Chest, 1 View CLINICAL HISTORY: The patient is 66 years old and is Female; NGT TECHNIQUE: Single view of the lower chest/upper abdomen. COMPARISON: No relevant prior studies available. FINDINGS: Lungs: Visualized lungs are clear. Pleural space: No pleural effusion. No large pneumothorax although the apices are cut off. Heart: Unremarkable. No cardiomegaly. Mediastinum: Unremarkable. Bones/joints: Unremarkable. Tubes, lines and devices: NG tube is in the body the stomach. Upper abdomen: No free air in the visualized upper abdomen. IMPRESSION: NG tube is in the body the stomach. Electronically signed by: Yasmine Orosco MD 07/08/2022 4:38 AM CDT Due to temporary technical issues with the PACS/Fluency reporting system, reports are being signed by the in house radiologists without review as a courtesy to insure prompt reporting. The interpreting radiologist is fully responsible for the content of the report.
--- NOTE | 2022-07-09 10:59 | RAD REPORT ---
EXAM DESCRIPTION: Abdomen Pelvis W Contrast CLINICAL HISTORY: Abdominal pain, acute, nonlocalized COMPARISON: 11/16/2020 TECHNIQUE: CT of the abdomen and pelvis performed following IV administration of iodinated contras t. This exam was performed according to our departmental dose-optimization program, which includes au tomated exposure control, adjustment of the mA and/or kV according to patient size and/or use of iter ative reconstruction technique. FINDINGS: Lung Bases: Ill-defined nodular opacity in the left lung base measuring 1.3 cm. Coronary a rtery atherosclerosis. Bones: Mild osteoarthritic change of the hips. Endplate spondylosis of the spine. Abdomen: Liver: The liver has normal size and decreased density. No intrahepatic biliary dilatation. Gallbladder: No calcified gallstones. Spleen, Pancreas, and Adrenal Glands: The spleen, pancreas, and adrenal glands are unremarkable. Kidneys: No hydronephrosis or obstructing calculus. Vasculature: Aortoiliac atherosclerosis. IVC is unremarkable. The portal vein is patent. The proxim al visceral and renal arteries are patent. Stomach: The stomach and duodenum have normal course. Other: No free intraperitoneal air. Moderate amount of free fluid and mesenteric edema. Pelvis: Bladder: Urinary bladder is unremarkable. Bowel: Dilated loops of proximal small bowel with distally dilated loops of bowel. Transition to de compressed loops of bowel at the surgical enteroenteric anastomosis in the right lower abdomen. Appendix: Not identified. Pelvis: Uterus is not enlarged. IMPRESSION: 1. Findings compatible with small bowel obstruction with transition to decompressed lo ops of bowel at the surgical enteroenteric anastomosis in the right lower abdomen. 2. Moderate amount of free fluid and mild mesenteric edema. 3. Hepatic steatosis. 4. Ill-defined nodular opacity in the left lung base measuring 1.3 cm. Recommend prompt non-contras t Chest CT for further evaluation. These guidelines do not apply to immunocompromised patients and pa tients with cancer. Follow up in patients with significant comorbidities as clinically warranted. For lung cancer screening, adhere to Lung-RADS guidelines. Reference: Radiology. 2017; 284(1):228-43. Electronically signed by: Pete Giraldo 07/08/2022 1:01 AM CDT Due to temporary technical issues with the PACS/Fluency reporting system, reports are being signed by the in house radiologists without review as a courtesy to insure prompt reporting. The interpreting radiologist is fully responsible for the content of the report.
--- NOTE | 2022-07-09 15:08 | P.CNS ---
Date of Consult: 07/09/22 PC: I was asked to see this 66-year-old female in regards to her small bowel obstruction HPC:: This patient presented to the emergency room with severe abdominal pain over the weekend. She describes it as sharp, cramping, associated with nausea and vomiting. She had eaten some salads, and high-fiber meals on Saturday. PSHx: Patient had a previous colonoscopy, and a colon resection with a diverting ileostomy as an elective procedure for diverticular Kalosis. Ileostomy reversal. This was in 2019. PMHx: Hyperlipidemia, Social Hx: No known allergies Sys R: Says she is a relatively good health, has only had intermittent abdominal pain that has actually been on her left side since her surgery. O/E: Awake alert vital signs are stable, nasogastric tube in place, HEENT: Within normal limits Chest: Chest movement equal bilaterally Abd: Tender currently in tympanic Tarrs: Intact Data: CT scan demonstrates possible narrowing colostomy takedown site Impression: Partial small bowel obstruction Plan: Nasogastric tube, IV fluids, serial exams.
--- NOTE | 2022-07-09 16:33 | P.PN ---
Subjective Date of Service: 07/09/22 Chief Complaint: SBO Subjective: No new changes No acute events overnight. She reports that her abdominal pain is persistent, and she grades it a 9-10/10 in severity. She has passed flatus overnight, but no bowel movements as of yet. Review of Systems 10-point ROS is otherwise unremarkable Gastrointestinal: Nausea, Abdominal Pain, Distention Physical Examination - Vital Signs Temperature: 98.2 F Blood Pressure: 146/68 Pulse: 80 Respirations: 16 Pulse Ox (%): 95 - Physical Exam General: Alert, In no apparent distress, Oriented x3 HEENT: Atraumatic, PERRLA, Mucous membr. moist/pink, Other (NG tube in place), EOMI, Sclerae nonicteric Neck: Supple, JVD not distended Respiratory: Clear to auscultation bilaterally, Normal air movement Cardiovascular: No edema, Regular rate/rhythm, Normal S1 S2, No gallops, No rubs, No murmurs Gastrointestinal: Hypoactive, No rebound, Distended, Tenderness, Guarding Musculoskeletal: No clubbing Integumentary: No rashes Neurological: Normal speech, Cranial nerves 3-12 intact, Normal affect - Studies Medications List Reviewed: Yes Assessment And Plan - Plan # Partial Small Bowel Obstruction # History of Diverticulitis with Perforation s/p Colectomy with Colostomy s/p Reversal - General Surgery consulted and Dr. Silva notified - recommendations appreci ated - NPO - Continue NG tube to low-intermittent suction - Symptom control: PRN ondansetron, acetaminophen, morphine - IV fluids with Lactated Ringers' at 100 mL/hr # Hyperlipidemia - Hold home meds while NPO # Left Lung Base Opacity (1.3 cm) # Hepatic Steatosis Incidentally noted on radiographic imaging. - Counseled to follow-up with PCP - she noted that she was already aware of this finding and will follow it up. Stefano Liu M.D.
--- NOTE | 2022-07-09 17:15 | P.PN ---
Date of Service: 07/09/22 S: Patient states she feels somewhat better than when she first came in. Not feeling any heart abdominal cramps, but did pass some gas per rectum. Nasogastric tube is bothering her. O: As mentioned her abdomen is distended, but no focal peritoneal signs. A: On review further review of her films, the area of narrowing is seen at her previous ileostomy takedown site. I believe that she may have a large food bolus in that area that is causing her issues at this time. She appears to be somewhat better at least from the patient and her daughters point of view. P: We will give her some mineral oil tonight via the nasogastric tube as this position has been confirmed on a KUB. We will reassess in the a.m. A CT scan without oral contrast will not be of much benefit at this point, so we will see how she feels tomorrow and what her labs indicate. I feel comfortable waiting at least another 24 hours.
[2022-07-09] MEDS ORDERED: MINERAL OIL 30 ML UCUP FT ONE ×2 (18:00→20:07)
[2022-07-10] MEDS: PIPER TAZO 3.375 GM in NA CHLORIDE 0.9% 100 ML IV SCH ×3 (00:34→16:33)
[2022-07-10] MEDS: MORPHINE 2 MG/ML SYR IV PRN ×3 (00:41→23:17)
[2022-07-10] MEDS: D5.45NS W/KCL 20MEQ 1,000 ML IV SCH ×2 (04:43→16:34)
[2022-07-10 06:10] LABS: Albumin 3.5 g/dL (3.4-5.0); Potassium 3.7 mmol/L (3.5-5.1); Protein, Total 7.1 g/dL (6.4-8.2)
[2022-07-10 06:11] LABS: Magnesium 2.4 mg/dL (1.8-2.4)
[2022-07-10] MEDS ORDERED: KCL 20 MEQ/100 mL IVPB 20 MEQ/100 ML BAG IV SCH (06:15)
[2022-07-10 06:43] LABS: Absolute Lymphocytes (CBC) 0.8 K/uL (0.7-4.9); Hematocrit 36.1 % (36.0-45.0); Lymphocytes % 12.1 % (15.3-44.8); MCV 90.3 fL (80-100); MPV 6.6 fL (7.6-11.3)
[2022-07-10] MEDS ORDERED: MINERAL OIL 30 ML UCUP FT ONE (13:43)
--- NOTE | 2022-07-10 17:43 | P.PN ---
Subjective Date of Service: 07/10/22 Chief Complaint: SBO No acute events overnight. She reports that her abdominal pain is persistent, but gradually improving. This morning, she grades it a 7-8/10 in severity. She has passed flatus overnight. She denies any bowel movements. Review of Systems 10-point ROS is otherwise unremarkable Gastrointestinal: Nausea, Abdominal Pain, Distention, Constipation Physical Examination - Vital Signs Temperature: 98.3 F Blood Pressure: 162/65 Pulse: 89 Respirations: 18 Pulse Ox (%): 97 - Studies Medications List Reviewed: Yes Assessment And Plan - Plan - Physical Exam General: Alert, In no apparent distress, Oriented x3 HEENT: Atraumatic, PERRLA, Mucous membr. moist/pink, Other (NG tube in place), EOMI, Sclerae nonicteric Neck: Supple, JVD not distended Respiratory: Clear to auscultation bilaterally, Normal air movement Cardiovascular: No edema, Regular rate/rhythm, Normal S1 S2, No gallops, No rubs, No murmurs Gastrointestinal: Hypoactive, No rebound, Distended, Tenderness, Guarding Musculoskeletal: No clubbing Integumentary: No rashes Neurological: Normal speech, Cranial nerves 3-12 intact, Normal affect # Partial Small Bowel Obstruction # History of Diverticulitis with Perforation s/p Colectomy with Colostomy s/p Reversal - General Surgery consulted and Dr. Silva notified - recommendations appreciated - Recommends non-surgical management at this time - NPO - Continue NG tube to low-intermittent suction - 750 mL of output overnight - Symptom control: PRN ondansetron, acetaminophen, morphine - IV fluids with Lactated Ringers' at 100 mL/hr # Hyperlipidemia - Hold home meds while NPO # Left Lung Base Opacity (1.3 cm) # Hepatic Steatosis Incidentally noted on radiographic imaging. - Counseled to follow-up with PCP - she noted that she was already aware of this finding and will follow it up. Stefano Liu M.D. Discharge Plan: Home Plan to discharge in: 48 Hours
[2022-07-11] MEDS: D5.45NS W/KCL 20MEQ 1,000 ML IV SCH ×3 (02:17→15:35)
[2022-07-11 05:46] LABS: Absolute Lymphocytes (CBC) 1.1 K/uL (0.7-4.9); Lymphocytes % 20.5 % (15.3-44.8); MCV 92.2 fL (80-100); MPV 6.6 fL (7.6-11.3); RBC Red Blood Cell Count 3.79 M/uL (3.86-4.86)
[2022-07-11 06:02] LABS: Albumin 3.3 g/dL (3.4-5.0); Bilirubin Total 0.6 mg/dL (0.2-1.0); Magnesium 2.3 mg/dL (1.8-2.4); Protein, Total 7.1 g/dL (6.4-8.2)
--- NOTE | 2022-07-11 09:55 | P.PN ---
Subjective Date of Service: 07/11/22 Chief Complaint: SBO Subjective: Improving No acute events overnight. Abdominal pain has significantly improved. There is still moderate amount of NG tube output. She has had 3 bowel movements overnight. Review of Systems 10-point ROS is otherwise unremarkable Gastrointestinal: Abdominal Pain (improved) Physical Examination - Vital Signs Temperature: 96.9 F Blood Pressure: 114/61 Pulse: 71 Respirations: 18 Pulse Ox (%): 97 - Studies Medications List Reviewed: Yes Assessment And Plan - Plan - Physical Exam General: Alert, In no apparent distress, Oriented x3 HEENT: Atraumatic, PERRLA, Mucous membr. moist/pink, Other (NG tube in place), EOMI, Sclerae nonicteric Neck: Supple, JVD not distended Respiratory: Clear to auscultation bilaterally, Normal air movement Cardiovascular: No edema, Regular rate/rhythm, Normal S1 S2, No gallops, No rubs, No murmurs Gastrointestinal: Hypoactive, No rebound, Distended, Minimal tenderness, No guarding Musculoskeletal: No clubbing Integumentary: No rashes Neurological: Normal speech, Cranial nerves 3-12 intact, Normal affect # Partial Small Bowel Obstruction # History of Diverticulitis with Perforation s/p Colectomy with Colostomy s/p Reversal - General Surgery consulted and Dr. Silva notified - recommendations appreciated - Recommends non-surgical management at this time - CLD per Surgery - Continue NG tube to low-intermittent suction - If output decreases, plan to clamp and possibly remove NG tube later today - Symptom control: PRN ondansetron, acetaminophen, morphine - IV fluids with Lactated Ringers' at 100 mL/hr # Hyperlipidemia - Hold home meds while NPO # Left Lung Base Opacity (1.3 cm) # Hepatic Steatosis Incidentally noted on radiographic imaging. - Counseled to follow-up with PCP - she noted that she was already aware of this finding and will follow it up. Stefano Liu M.D. Discharge Plan: Home Plan to discharge in: 48 Hours
[2022-07-11] MEDS ORDERED: MINERAL OIL 30 ML UCUP PO ONE (10:53)
--- NOTE | 2022-07-11 14:41 | P.PN ---
Date of Service: 07/11/22 S: Nasogastric tube has been removed, was started on full liquids. Has been having bowel movements. Abdominal pain is much less today. Barely has any cramping at all. O: Vital signs remained stable. Abdomen is soft, minimal tenderness today. A: Small bowel obstruction appears to be resolving, P: We will advance to full liquid diet, if tolerated soft mechanical in the a.m. Patient needs to be got out of bed and ambulated. Anticipate discharge perhaps as early as tomorrow.
[2022-07-12 05:47] LABS: Absolute Lymphocytes (CBC) 0.8 K/uL (0.7-4.9); Hematocrit 33.1 % (36.0-45.0); Lymphocytes % 16.6 % (15.3-44.8); MCV 90.6 fL (80-100); MPV 6.4 fL (7.6-11.3); RBC Red Blood Cell Count 3.65 M/uL (3.86-4.86)
[2022-07-12 06:10] LABS: Albumin 3.4 g/dL (3.4-5.0); Bilirubin Total 0.7 mg/dL (0.2-1.0); Magnesium 2.3 mg/dL (1.8-2.4); Potassium 3.8 mmol/L (3.5-5.1); Protein, Total 7.1 g/dL (6.4-8.2)
[2022-07-12 08:08] VITALS: BP 119/64; TEMP 97.2
--- NOTE | 2022-07-12 08:14 | P.DS ---
Admission Date: 07/08/22 Discharge Date: 07/12/22 Disposition: ROUTINE DISCHARGE Discharge Condition: GOOD Reason for Admission: SBO Consultations: 1. General Surgery Hospital Course: DIAGNOSES: # Partial Small Bowel Obstruction # History of Diverticulitis with Perforation s/p Colectomy with Colostomy s/p Reversal # Hyperlipidemia # Left Lung Base Opacity (1.3 cm) # Hepatic Steatosis HOSPITAL COURSE: Ms. Niki Melendrez is a pleasant 66-year-old female with a past medical history significant for diverticulitis complicated by perforation s/p colectomy with colostomy s/p reversal and hyperlipidemia who was admitted to the [facility] on 07/08/2022 for abdominal pain. Upon further evaluation, she was found to have a partial small bowel obstruction. She was admitted to the Medicine service and General Surgery was consulted. She was evaluated by Dr. Silva and he recommended non-surgical management. A nasogastric tube was placed and started at lowintermittent suction. Over the course of her hospitalization, her abdominal pain improved significantly and the nasogastric tube was removed. She was able to pass flatus and bowel movements prior to discharge. She was started on a clear liquid diet and advanced to a regular diet, without any complications. Of note, she was incidentally found to have a 1.3 cm opacity in her left lung. This finding was discussed with her and it was explained that this may represent an underlying malignancy. She was advised to follow-up with her PCP for further evaluation and surveillance imaging. She verbalized understanding and agreed to make this appointment. On 07/12/2022, she was seen on morning rounds and deemed medically stable for discharge. She was discharged with instructions to schedule follow-up appointments with her PCP (Dr. Lowery) in 3-5 days and with General Surgery (Dr. Silva) in 1-2 weeks. She was given the opportunity to ask questions and reported no further questions. Furthermore, all questions were answered to the best of my ability. Today, I personally spent 20 minutes on her case, of which greater than 50% of the time was spent in patient education, counseling, and coordination of care as described above. - Physical Exam General: Alert, In no apparent distress, Oriented x3 HEENT: Atraumatic, PERRLA, Mucous membr. moist/pink, EOMI, Sclerae nonicteric Neck: Supple, JVD not distended Respiratory: Clear to auscultation bilaterally, Normal air movement Cardiovascular: No edema, Regular rate/rhythm, Normal S1 S2, No gallops, No rubs, No murmurs Gastrointestinal: Normoactive, No rebound, non-distended, No tenderness, No guarding Musculoskeletal: No clubbing Integumentary: No rashes Neurological: Normal speech, Cranial nerves 3-12 intact, Normal affect Vital Signs/Physical Exam: Temp Pulse Resp BP Pulse Ox 97.2 F 91 H 14 119/64 97 07/12/22 08:00 07/12/22 08:00 07/12/22 08:00 07/12/22 08:00 07/12/22 08:00 Laboratory Data at Discharge: WBC 5.10 K/uL (4.3-10.9) 07/12/22 05:32 Hgb 11.6 g/dL (12.0-15.0) L 07/12/22 05:32 Hct 33.1 % (36.0-45.0) L 07/12/22 05:32 Plt Count 178 K/uL (152-406) 07/12/22 05:32 Sodium 137 mmol/L (136-145) 07/12/22 05:32 Potassium 3.8 mmol/L (3.5-5.1) 07/12/22 05:32 BUN 4 mg/dL (7-18) L 07/12/22 05:32 Creatinine 0.65 mg/dL (0.55-1.3) 07/12/22 05:32 Glucose 96 mg/dL (74-106) 07/12/22 05:32 Magnesium 2.3 mg/dL (1.8-2.4) 07/12/22 05:32 Total Bilirubin 0.7 mg/dL (0.2-1.0) 07/12/22 05:32 AST 17 U/L (15-37) 07/12/22 05:32 ALT 36 U/L (12-78) 07/12/22 05:32 Alkaline Phosphatase 84 U/L (45-117) 07/12/22 05:32 Lipase 90 U/L (73-393) 07/07/22 23:49 Home Medications: RX: Aspirin [Aspir-Low] 1 tab PO DAILY 12/23/17 RX: Atorvastatin Calcium [Lipitor] 40 mg PO BEDTIME 12/23/17 RX: Zolpidem Tartrate 10 mg PO BEDTIME PRN 06/15/20 Vit D3 1 cap PO DAILY 06/15/20 Physician Discharge Instructions: 1. Please schedule a follow-up appointment with your PCP (Dr. Lowery) in 3-5 days 2. Please schedule a follow-up appointment with General Surgery (Dr. Silva) in 1-2 weeks Diet: Regular Activity: Ad vannesa Followup: Radha Waldrop MD [Primary Care Provider] - Yousif Silva MD [ACTIVE - CAN ADMIT] - Time spent managing pt's care (in minutes): 20
[2022-07-12] MEDS ORDERED: POTASSIUM CL SA 10 MEQ TAB PO ONE (09:00)
[2022-07-12 10:12] VITALS: O2SAT 97
== END 2022-07-12 10:35 | disposition home or self-care (01) | DRG 389 ==
LOC: ER 23:11 → ERHOLD 07-08 02:49 → 2ND 07-08 17:37
PROVIDERS: ADMIT Hospitalist; ATTEND Internal Medicine
DX: K56.600 Partial intestinal obstruction, unspecified as to cause (principal); C34.92 Malignant neoplasm of unspecified part of left bronchus or lung; E78.5 Hyperlipidemia, unspecified; E87.6 Hypokalemia; I10 Essential (primary) hypertension; K76.0 Fatty (change of) liver, not elsewhere classified; K59.00 Constipation, unspecified; D72.829 Elevated white blood cell count, unspecified; R91.8 Other nonspecific abnormal finding of lung field; Z98.51 Tubal ligation status; Z79.82 Long term (current) use of aspirin; Z90.49 Acquired absence of other specified parts of digestive tract; Z87.891 Personal history of nicotine dependence; Z79.899 Other long term (current) drug therapy; Z20.822 Contact with and (suspected) exposure to COVID-19
CPT/HCPCS: 36415; 71045; 74018; 74177; 80053; 81003; 81015; 82565; 83690; 83735; 85025; 87086; 87088; 87811; 96374; 96375; 99285; J2270; J2405; J2543; J3480; J7030; Q9967

== ENCOUNTER 2023-02-18 08:29 | Day surgery (SDC) | payer OTHER ==
[2023-02-18 09:20] LABS: MPV 6.7 fL (7.6-11.3)
[2023-02-18 14:43] VITALS: BP 149/85; TEMP 97.3; O2SAT 98; BMI 23.5
== END 2023-02-18 10:14 | disposition home or self-care (01) ==
LOC: FNA 08:29 → DS 10:14
PROVIDERS: ATTEND Internal Medicine Sleep Medicine
DX: R91.8 Other nonspecific abnormal finding of lung field (principal); Z53.8 Procedure and treatment not carried out for other reasons
CPT/HCPCS: 36415; 85049; 85730